=== PATIENT | male | born 1955 | race Caucasian/White ===

== ENCOUNTER 2018-11-16 11:54 | Inpatient (IN) | payer OTHER ==
[~2018-11-16] VITALS: Ht 170.2 cm; Wt 89.0 kg
--- NOTE | 2018-11-16 13:08 | NUR ---
PT C/O OF FALLING AT HOME AND HITTING HIS HEAD ON THE CARPET. PT WAS SUPPOSE TO GO TO [facility] TODAY BUT WQSNT ABLE TO MAKE THE APPOINTMENT. PTS DAUGHTER CAME TO SEE HIM AND SHE STS THAT HE WASNT ACTING NORMAL. SHE STS THAT WAS ACTING "SLOW". PT STS THAT HE HAS VOMITED ONE TIME TODAY. PT STS THAT SINCE HE HAS FALLEN HIS LEGS FEEL HEAVY AND THE RIGHT LEG HURTS MORE THAN HIS LEFT. SINCE HIS FALL HE ALSO HAS FELT DIZZY AND "NOT HIMSELF". CALL LIGHT IN REACH. DAUGHTER AT BEDSIDE. VSS. WILL CONTINUE TO MONITOR.
--- NOTE | 2018-11-16 13:51 | NUR ---
XRAY AT BEDSIDE.
[2018-11-16 13:53] LABS: BASOPHIL % 0.2 % (0-2)
[2018-11-16 14:01] LABS: CALCIUM 9.1 mg/dL (8.5-10.1); CARBON DIOXIDE 26.5 mmol/L (21-32); CHLORIDE SERUM 97 mmol/L (98-107); CREATININE SERUM 0.8 mg/dL (0.7-1.3); GFR1 > 60 mL/min; GLUCOSE SERUM 123 mg/dL (74-106); POTASSIUM SERUM 3.8 mmol/L (3.5-5.1); SODIUM SERUM 136 mmol/L (136-145)
[2018-11-16 14:02] LABS: PLATELET COUNT 117 x10^3mcL (130-400); RED CELL DISTRIBUTION WIDTH 17.2 % (11.5-14.5)
[2018-11-16 14:11] LABS: ALBUMIN 3.4 g/dL (3.4-5.0); ALKALINE PHOSPHATASE 112 U/L (46-116); ALT/SGPT 44 U/L (16-63); AST/SGOT 61 U/L (15-37); BILIRUBIN TOTAL 5.24 mg/dL (0.20-1.00); C REACTIVE PROTEIN 4.9 mg/dL (<=0.9); TOTAL PROTEIN, SERUM 6.6 g/dL (6.4-8.2)
[2018-11-16 14:15] LABS: FREE T4 1.48 ng/dL (0.76-1.46); FREE THYROXINE INDEX 2.4 ug/dL (1.4-4.5)
--- NOTE | 2018-11-16 14:15 | NUR ---
DAUGHTER AT BEDSIDE. PT HAS NO S/S OF DISTRESS. REPS E/U. WILL CONTINUE TO MONITOR.
--- NOTE | 2018-11-16 14:16 | NUR ---
GAVE REPORT TO ARMANDO GAMING.
[2018-11-16 14:27] LABS: T3 TOTAL 0.59 ng/mL
[2018-11-16 14:35] LABS: CK-MB 2.7 ng/mL (0-3.6)
[2018-11-16 14:55] LABS: ERYTHROCYTE SED RATE 0 mm/hr (0-20)
--- NOTE | 2018-11-16 15:47 | NUR ---
PT MEDICATED PER ORDER. PT VERBALIZED UNDERSTANDING OF MED. SEE EMAR FOR DETAILS.
--- NOTE | 2018-11-16 15:51 | NUR ---
PT STS HE IS IN PAIN. DR. VALENTINO AT BEDSIDE AWARE OF PT PAIN AT THIS TIME.
[2018-11-16] MEDS ORDERED: NEURONTIN800 MG PO (16:24)
[2018-11-16] MEDS ORDERED: APAP/HYDROCODON1 T13 PO (16:25)
[2018-11-16] MEDS ORDERED: TRA50 PO (16:27)
[2018-11-16] MEDS ORDERED: NORTRIPTYLINE H10 MG PO (16:28)
[2018-11-16] MEDS ORDERED: FUROSEMIDE20 MG PO (16:29)
[2018-11-16] MEDS ORDERED: ZOFRAN ODT4 MG PO (16:29)
--- NOTE | 2018-11-16 16:50 | NUR ---
REPORT GIVEN TO MYESHA GAMING.
[2018-11-16 17:01] LABS: CHOLESTEROL/HDL RATIO 13.8; MAGNESIUM 1.9 mg/dL (1.8-2.4); PHOSPHOROUS 3.8 mg/dL (2.5-4.9)
[2018-11-16 17:20] VITALS: BP 120/89
--- NOTE | 2018-11-16 17:24 | NUR ---
MEDICATED W/ MORPHINE 2MG SLOW IVP FOR C/O 9/10 HEADACHE AND ABDOMINAL PAIN AND W/ ZOFRAN 4 MG SLOW IVP FOR C/O NAUSEA. PT AAOX3, W/ PERIODS OF FORGETFULNESS. ABLE TO FOLLOW SIMPLE COMMANDS. NO SOB NOTED. ON TELE#19, SINUS TACHYCARDIA ON THE MONITOR, HR AT 104. W/ SWELLING ON BLE. PULSES ARE PALPABLE. IV SITE ON THE LAC IS PATENT AND INTACT. SIDE RAILS UPX2. CALL LIGHT ON REACH. HOB ELEVATED AT [address] ARIZMENDI IS PAGEGATED TO MADE AWARE THAT PT NEEDS A DIET ORDER. DAUGHTER AT BEDSIDE. WILL CONT TO MONITOR
--- NOTE | 2018-11-16 17:32 | NUR ---
RECEIVED PT FROM ED VIA MARYURI. ORIENTED PT TO ROOM AND SURROUNDINGS. IV NOTED TO LAC PATENT AND INTACT. TELE 19 PLACED ON PT READING SR WITH BBB. INSTRUCTED PT ON THE USE OF CALL LIGHT FOR ASSISTANCE. ENDORSED PT TO PRIMARY NURSE MYESHA
--- NOTE | 2018-11-16 18:01 | NUR ---
RANDOM BLOOD SUGAR HHAV=[id number].
--- NOTE | 2018-11-16 19:03 | NUR ---
BEDSIDE REPORT GIVEN TO ANNETTE FOR CONTINUITY OF CARE
--- NOTE | 2018-11-16 19:39 | NUR ---
RECEIVED PT A/O X 3. ON TELE #9. DENIES ANY CHEST PAIN AT THIS TIME. EDEMA NOTED ON BLE. BREATHING IS EVEN AND UNLABORED. BOWEL SOUNDS ACTIVE IN ALL QUADRANTS. PT STATES THAT HE HAS NO N/V AT THIS TIME. IV ON LAC IS PATENT AND RUNNING NS AT 100 CC/HR. WILL CONTINUE TO MONITOR.
[2018-11-16 19:50] VITALS: BP 120/86
[2018-11-16 20:51] VITALS: BP 122/95
--- NOTE | 2018-11-16 21:00 | NUR ---
ADMINISTERED SCHEDULED MEDICATIONS. PT TOLERATED MEDS WELL. WILL CONTINUE TO MONITOR.
[2018-11-16 21:55] VITALS: BP 118/91
--- NOTE | 2018-11-16 21:55 | NUR ---
TICKET SCHEDULER CALLED AND REPORTED EPISODE OF 2ND DEGREE BLOCK TYPE 2 NON-SUSTAINED.CHECKED ON PT.DENIES CHESTPAIN.IN NO DISTRESS.BP 118/91 MMHG,HR 104.92%RA.DR. RAQUEL FLETCHER.
--- NOTE | 2018-11-16 22:30 | NUR ---
SPOKE WITH DR. GARCÍA AND MADE AWARE.NNO AT THIS TIME.MONITOR READS SINUS TACH AT THIS TIME.WILL CONTINUE TO MONITOR.
[2018-11-17 05:15] VITALS: BP 114/85
[2018-11-17 06:01] LABS: UA SPECIFIC GRAVITY 1.015 (1.005-1.035); microscopic required? YES; urine erythrocyte NEGATIVE (NEGATIVE)
--- NOTE | 2018-11-17 06:03 | NUR ---
PT COMPLAINED OF DIZZINESS AND 10/10 PAIN. ADMINISTERED PRN ANTIVERT AND MORPHINE PRESCRIBED.
[2018-11-17 06:11] LABS: AMPHETAMINE QUAL UR NONE DETECTED (See below)
[2018-11-17 06:26] LABS: CALCIUM 8.2 mg/dL (8.5-10.1); CARBON DIOXIDE 25.6 mmol/L (21-32); CHLORIDE SERUM 98 mmol/L (98-107); GFR1 > 60 mL/min; GLUCOSE SERUM 120 mg/dL (74-106); SODIUM SERUM 134 mmol/L (136-145)
[2018-11-17 06:40] LABS: BASOPHIL % 0.4 % (0-2)
--- NOTE | 2018-11-17 06:43 | NUR ---
PT IS SEEN SLEEPING IN BED. BREATHING IS EVEN AND UNLABORED. IV IS PATENT, AND RUNNING NS AT 100 CC/HR. WILL ENDORSE CONTINUITY OF CARE TO ONCOMING NURSE.
--- NOTE | 2018-11-17 07:12 | NUR ---
RECEIVED PATIENT FROM INVESTIGATION SPECIALIST NURSE. PATIENT IS RESTING WITH BOTH EYES CLOSED, AROUSABLE. TELE#19, ST WITH BBB, HR 117. 2+ EDEMA NOTED TO BLE, ELEVATED ON PILLOWS AT THIS TIME. ON ROOM AIR, BREATHING EVEN AND UNLABORED. IV NTOED TO LAC, SALINE LOCKED, NO S/S REDNESS OR EDEMA AT SITE, FLUSHING WELL. CALL LIGHT WITHIN EASY REACH. WILL CONTINUE PLAN OF CARE.
[2018-11-17 07:23] LABS: PLATELET COUNT 114 x10^3mcL (130-400); RED CELL DISTRIBUTION WIDTH 17.4 % (11.5-14.5)
[2018-11-17 07:43] VITALS: BP 107/82
--- NOTE | 2018-11-17 09:22 | NUR ---
ECHOCARDIOGRAM COMPLETED
--- NOTE | 2018-11-17 12:22 | NUR ---
LAB CALLED WITH CRITICAL LACTIC ACID 2.8. DR POWELL NOTIFIED AT THIS TIME. REPEAT LA TO BE ORDERED IN 6 HOURS. WILL FOLLOW UP.
[2018-11-17 12:29] LABS: TOTAL IRON BINDING CAPACITY 296 ug/dL (250-450)
[2018-11-17 12:31] VITALS: BP 103/76
[2018-11-17 12:37] LABS: IRON 24 ug/dL (65-170)
[2018-11-17 16:52] VITALS: BP 122/88
--- NOTE | 2018-11-17 16:55 | NUR ---
MANAGER EMPLOYMENT NOTIFIED OF PATIENTS TEMP 96.8. PATIENT ASSESSED AND FEELS COOL TO THE TOUCH. PATIENTS TEMP TAKEN AGAIN AND READING 96.9. PATIENT GIVEN WARM BLANKETS AND HEATING MEASURES IMPLEMENTED AT THIS TIME. DR ANDRE FLETCHER. WILL FOLLOW UP.
--- NOTE | 2018-11-17 17:20 | NUR ---
PATIENTS BLADDER SCANNED AT THIS TIME. MINIMAL AMOUNT OF URINE THAT IS NOT QUANTIFIED. SPOKE WITH DR POWELL AND NOTIFIED OF PATIENTS TEMP 96.8 AND OF PATIENTS BLADDER SCAN RESULTS DUE TO MINIMAL URINE OUTPUT. ORDER TO PLACE STERLING CATHETER. WILL CONTINUE TO MONITOR.
--- NOTE | 2018-11-17 17:54 | NUR ---
STERLING CATHETER INSERTED AT THIS TIME. PATIENT TOLERATED WELL. URINE OUTPUT 300CC DARK JAXON URINE. WILL CONTINUE TO MONITOR.
[2018-11-17 19:10] VITALS: BP 123/88
--- NOTE | 2018-11-17 19:12 | NUR ---
PATIENT RESTING IN BED PEACEFULLY AT THIS TIME. MEDICATED FOR GENERALIZED PAIN WITH NORCO. NO C/O CHEST PAIN OR SOB. WILL ENDORSE PATIENT CARE TO FEATHER MIXER NURSE.
--- NOTE | 2018-11-17 19:15 | NUR ---
RECEIVED PT DROWSY BUT EASILY AROUSABLE,ANSWERS QUESTIONS APPROPRIATELY.ME 7/10 TO GENERALIZED PAIN.C/O DIZZINESS.BP 123/88 MMHG,HR 101.F/C TO JAXON COLORED URINE.ON FALL PRECAUTION.BEDALARM ON AT ALL TIMES.WILL CONTINUE TO MONITOR.
[2018-11-17 20:41] VITALS: BP 115/87
--- NOTE | 2018-11-18 04:35 | NUR ---
PT SLEPT WELL ALL NIGHT.NO SYNCOPAL EPISODES NOTED.EPISODE OF BOWEL INCONTINENCE TO WATERY STOOL X1.GOOD PERICARE RENDERED.F/C TO JAXON COLORED URINE.EMPTIED 2500 ML.DENIES ABDOMINAL PAIN AT THIS TIME.BEDALARM ON AT ALL TIMES.WILL CONTINUE TO MONITOR.
[2018-11-18 05:23] VITALS: BP 123/75
[2018-11-18 06:37] LABS: BASOPHIL % 0.2 % (0-2)
--- NOTE | 2018-11-18 07:00 | NUR ---
PATIENT AND REPORT RECEIVED FROM SENIOR JAVA WEB DEVELOPERBRI BRYANT RN
[2018-11-18 07:27] LABS: CALCIUM 8.1 mg/dL (8.5-10.1); CARBON DIOXIDE 25.2 mmol/L (21-32); CHLORIDE SERUM 96 mmol/L (98-107); CREATININE SERUM 1.1 mg/dL (0.7-1.3); GFR1 > 60 mL/min; GLUCOSE SERUM 116 mg/dL (74-106); POTASSIUM SERUM 3.8 mmol/L (3.5-5.1); SODIUM SERUM 133 mmol/L (136-145)
[2018-11-18 07:47] LABS: PLATELET COUNT 99 x10^3mcL (130-400); RED CELL DISTRIBUTION WIDTH 17.6 % (11.5-14.5)
--- NOTE | 2018-11-18 08:16 | NUR ---
DR ANDRE FLETCHER FOR CRITICAL LABS HGB 19.2, HTC 58 AND LACTIC ACID 2.5.
[2018-11-18 08:17] VITALS: BP 113/71
--- NOTE | 2018-11-18 09:39 | NUR ---
ATTEMPTED INCENTIVE SPIROMETER INSTRUCTION AND USE WITH PATIENT. PATIENT VERY LETHARGIC, COULD BARELY KEEP EYES OPEN LONG ENOUGH TO LISTEN TO ME OR PERFORM IS. PT WAS INSTRUCTED ON HOW TO USE THE IS AND TO USE A MINIMUM OF 10X PER HOUR WHILE AWAKE BUT PATIENT KEPT FALLING ASLEEP DURING INSTRUCTION, WELL DURING USE. WILL ATTEMPT EDUCATION AGAIN LATER TODAY WHEN PATIENT IS MORE AWAKE AND ALERT.
[2018-11-18 11:49] VITALS: BP 103/76
--- NOTE | 2018-11-18 12:00 | NUR ---
PATIENT HAS BEEN SLEEPING THE MAJORITY OF THE DAY. DR REINA HERE TO SEE PATIENT, ADJUSTED LASIX ORDER AND AIDED SYED. ACCUCHECK WAS 102.
--- NOTE | 2018-11-18 16:00 | NUR ---
DR MEJIA ORDERED TO DISCONTINUE ABX AND IVF. WILL CONTINUE TO MONITOR AND ENDORSE TO NEXT SHIFT.
[2018-11-18 16:24] VITALS: BP 142/65
--- NOTE | 2018-11-18 16:30 | NUR ---
ACCUCHECK 118, NO COVERAGE REQUIRED.
--- NOTE | 2018-11-18 19:04 | NUR ---
PATIENT AND REPORT GIVEN TO MACHINE INSPECTOR ANNETTE GAMING.
--- NOTE | 2018-11-18 19:05 | NUR ---
RECEIVED PT SITTING BY THE EDGE OF THE BED.C/O DIZZINESS.ASSISTED BACK TO BED.DENIES CHESTPAIN AT THIS TIME.BP 116/76 MMHG,HR 102.GENERALIZED SWELLING NOTED.F/C TO DARK JAXON COLORED URINE.ON FALL PRECAUTION.BEDALARM ON AT ALL TIMES.WILL CONTINUE TO MONITOR.
[2018-11-18 19:10] VITALS: BP 116/76
--- NOTE | 2018-11-19 02:00 | NUR ---
PT WITH BOWEL INCONTINENCE X1 WITH DARK RED COLORED STOOL.ABDOMEN SOFT AND ROUND.PT APPEARS WEAK AND WITH SOME CONFUSION.REORIENTATION PROVIDED.GOOD PERICARE PROVIDED.WILL CONTINUE TO MONITOR.
--- NOTE | 2018-11-19 04:49 | NUR ---
PT WITH ON AND OFF SLEEPING PATTERN.EPISODES OF WATERY STOOL X3.GOOD PERICARE RENDERED.MEDICATED WITH NORCO 5/325 MG PO X1 FOR ABDOMINAL PAIN WITH GOOD RELIEF.BEDALARM ON AT ALL TIMES.ALL NEEDS ANTICIPATED.WILL CONTINUE TO MONITOR.
[2018-11-19 05:33] VITALS: BP 129/81
--- NOTE | 2018-11-19 06:31 | NUR ---
GOOD PERICARE RENDERED.CHANGED GOWN AND LINENS.EMPTIED ANOTHER 250 ML NOW TO YELLOW COLORED URINE.WILL ENDORSE TO AM NURSE.
[2018-11-19 06:56] LABS: CALCIUM 8.5 mg/dL (8.5-10.1); CREATININE SERUM 1.8 mg/dL (0.7-1.3)
[2018-11-19 07:29] LABS: BASOPHIL % 0.1 % (0-2); PLATELET COUNT 101 x10^3mcL (130-400); RED CELL DISTRIBUTION WIDTH 17.1 % (11.5-14.5)
--- NOTE | 2018-11-19 08:00 | NUR ---
PATIENT RECEIVED CONFUSED AND DISORIENTED AT THIS TME. APTEINT IS MUMBLING AND IS ALMOST UNABLE TO SPEAK. HE SEEMS SLEEPY AND HAVING TROUBLE KEEPING AWAKE. HE HAS NOT BEEN ABLE TO WALK OR DO HIS ADLS ON HIS OWN. PER REPORT PATIENT HAS BEEN IMPULSIVE AND NEEDS TO BE ASSISTED TO [facility] AND BACK DUE TO THE FALL RISL. APTIENT ON IV FLUIDS AND IS VERY EDEMITIS AND HAS AT LEAST 4 PLUS TO THE EXTREMTIES. IV TO THE THUMB WAS PER THE DRAW FRAME TENDER A DIFFICULT STICK TO ACHEIVE. PATIENT AHS DIMINSIHED BREATH SOUDNS WITH SOEM FINE RALES AND ABDOMEN IS DISTEDND EAND BLOATED IN APPEARANCE. PATIENT HAS NOTED HISTORY OF LEIVER CIRRHOSIS, CAD, HTN, CHF AND QUDRUPLE BYPASS WELL DM AND HAS HAD A ICD IN 2015. FABIOLA GILLIAMLASHAY LOW LUNG VOLUME PER THE CHEST XRAY AND HAS RECEIVED VITAMIN K AND HAS ELEVATED LACTIC ACIDE AND HAS A H AND H OF 18.7/56. THE WBC AT 15.0. APTINET HAS BEEN WITH EJECTION FRACTION OF ONLY 10 PERCENTR AND HAS BEEN WITH SINUS TACH WITH BBB. FABIOLA JEFFRIES PRTIEN IN THE URINE AND BACTERIA AND HAS BEEN POSITIVE FOR OPIATES. PATIENT AHS WEEN BY DR MONTAGUE, ROBERTO AND DR REINA. THE PROGNOSIS IS POOR FOR THE PATIENT AND FAMILY WILL NEEDS TO DISCUSSED IWTH THE PHYSICIAN ON PLAN OF CARE. PATIENT IS A DNR.
[2018-11-19 09:04] VITALS: BP 101/74
--- NOTE | 2018-11-19 09:42 | NUR ---
PATIENT HAVING BLOOD DRAWN BUT AT THIS TIME SEEMS CONFUSED AND DISORIENTED. TOLERATED WELL AND WILL SEE IF HE CAN TOLERATE THE MEDICATIONS ORDERED. NOTED DISCONTINUATION OF THE LASIX AND A ORDER FOR PAMELOR. WILL GIVE INDICATED.
--- NOTE | 2018-11-19 09:59 | NUR ---
RESIDENTS AT BEDSIDE. FLUIDS DISCONTINUED. GAV [place] BUT ROBERT IS UNABLE TO POUR INTO HIS MOUTH AND ASSISTED AND ASSISTED WITH DRINKING THE WATER WELL HE WAS UNABLE TO HOLD THE CUP. PATIENT IS CONFUSED AND DISORIENTED AT THIS TIME.
[2018-11-19 10:08] LABS: ALKALINE PHOSPHATASE 88 U/L (46-116); ALT/SGPT 643 U/L (16-63); BILIRUBIN DIRECT 4.02 mg/dL (0.0-0.2); BILIRUBIN TOTAL 7.23 mg/dL (0.20-1.00)
[2018-11-19 10:09] LABS: ALBUMIN 2.6 g/dL (3.4-5.0); TOTAL PROTEIN, SERUM 5.5 g/dL (6.4-8.2)
[2018-11-19 10:10] LABS: AST/SGOT 1547 U/L (15-37)
--- NOTE | 2018-11-19 11:08 | NUR ---
PATIENT FOUND ON THE FLOOR. PATIENT HAD APPARENTLY GOT UP AND WAS NOT ABLE TO WALK. THE PATIENT HAS AN ABRASION TO THE MIDDLE OF THE BACK AND HAS BLOODY STOOL NOTED DOWN HIS LEGS AND ON THE FLOOR. PATIENT IS WEAK BUT WAS ABLE TO ASSESS NO SIGNS OF FRACTURE. NO HEAD TRAUMA WAS NOTED. PATIENT DENIES PAIN TO THE BUTTOCKS OR THE LEGS AND STATES SOME PAIN TO THE RIGHT SIDE OF THE NECK. NO BUMPS NOTED OR ABRASIONS TO THE FACE, BACK OF HEAD OR EAR. PATIENT HAS NO STALIN OF INJURY TOT EH RIGHT OR LEFT ARM. PATIENT WAS SAT UP AND THE PT CAME AND ASSISTED THE STAFF TO GET THE PATEINT TO A CHAIR. THE THE PT GOT THE PATIET TO BED. PATIENT WAS NOT ABLE TO ASSIST THE PT OR STAFF ON HIS CARE. STAFF THEN CLENED HIS LEGS AND PERIRECTAL SITE. THE IV HAS BEEN LOST AND PULLED OUTBY THE PATINET AND THE STERLING REMAINS INTACT AND PATIENT HAS SOME BLOOD IN THE TUBING BUT MINIMAL AT THIS TIME. PATIENT IS RESTING IN BED AND THE RESIDENT CAME TO SEE THE PATIENT. THE PATIENT INDICATED PAIN TO THE NECK TO THE RSIDENT AND A CT WAS ORDERED. PATIENT IS DOWN FOR CT AND AWAITING ARRIVAL BACK AND RESULTS. PATIENT WAS ABLE TO TAKE HIS MEDICATIONS ORDERED. WILL RESTART THE IV ON HIS RETURN.
--- NOTE | 2018-11-19 11:31 | NUR ---
BACK FROM CT AND TOLERATED WELL VIA BED. BED ALARM ON AND WILL MONITOR FOR THE RESULTS OF THE TESTING.
--- NOTE | 2018-11-19 12:28 | NUR ---
UNABLE TO SEE PATIENT FOR P.T. DUE TO FALL IN THE MORNING, PATIENT WILL GO FOR TESTS PER NURSING.
--- NOTE | 2018-11-19 12:29 | NUR ---
DOWN FOR XRAY AT THIS TIME.
[2018-11-19 12:55] VITALS: BP 94/63
--- NOTE | 2018-11-19 15:16 | NUR ---
STARTED IV TO THE LEFT SHOULDER WITH 22 GAUGE AND HOPEFULLY THE PATIENT WILL NOT PULL OUT. GAVE SOME OF THELIQUID DIET BUT PATIENT IS UNABLE TO HOLD THE BOTTLE OF ENSURE OR EVEN GET TO THE STRAW WITHOUT GUIDANCE. HE IS SHAKEY AND ABRUPT ON HIS MOVEMENTS. ENCOURAGE TO RELAX AND NOT TO GET UP HE HAS ALREADY FALLEN DUE TO HIS WEAKNESS. PATIENT WANTS TO SLEEP NOW. WILL CONTINUE TO MONITOR.
[2018-11-19 16:30] VITALS: BP 98/66
--- NOTE | 2018-11-19 17:20 | NUR ---
SPOKE TIH MICAELA DAUGHTER ON THE PHONE AND SHE ATTEMPTING TO COME IN TOMORROW. ADVISED THAT THE PATIENT FAMILY NEED TO DISCUSS PLAN OF CARE WITH THE RESIDENT AND THE TANK BUILDER SUPERVISOR. PATIENT IS STILL CONFUSED AND LETHARGIC. PATIENT HAS HAD THE MEDICATIONS FOR THIS AFTERNOON HELD DUE TO THIS AND THE CONCERN THE PATIENT MAY ASPIRATE.
--- NOTE | 2018-11-19 18:44 | NUR ---
PATIENT HAS BLOOD FRON THE RECTUM IT IS A SORT OF ORANGISH RED AND NO INDICATIO OF ANY BM. MUCH LIKE EARLIER BUT WITHOUT STOOL. PATIENT IS VERY EDEMITIS AND HAS NOT BEEN ABLE TO TAKE MEDICATIONS OTHER THAN THE IV ROCEPHIN THAT WAS GIVEN. THE IV INTACT TO THE LEFT SHOULDER AND IS HEPLOCKED AT THIS TIME. PATIETN IS CONFUSED AND WAS ADVISED THAT THE DAUGHTER IS ATTEMPTING TO COME TO THE HOSPTIAL SEE HIM TOMORROW. DUE TO THE FALL AND THE EJECTION FRACTION AND THE BLOOD LOSS AND THE POOR OUTPUT OF URINE AND HIS ELVATED LIVER ENZYMES THE PATIENT IS IS IN A STATE THAT THE FAMILY DISCUSS OPTIONS. THE PATIENT HAS MULTIPLE MORBIDITIES AND ISSUES. HE WAS NOT ABLE TO TOLERATE THE ULTRASOUND AT THIS TIME. THE TECH STOPPED WHEN PATIENT BECAME RESISTIVE TO THE TEST. BED ALARM ON AND PATIENT HAS BEEN TOO LETHARGIC TO TOLERATE THE MEDICATION OR DIET AT THIS TIME. IF UNABLE TO CONTACT THE RESIDENT WILL ENDORSE FINDINGS TO THE NEXT SHIFT TO ADVISE.
--- NOTE | 2018-11-19 19:35 | NUR ---
RECEIVED PT RESTING IN BED, PT APPEARS LETHARGIC, SLEEPY BUT AROUSABLE. PT AOX2 (PT CAN RECALL HIS NAME, , HE KNOWS HE IN IS HOSPITAL, DOESNT KNOW THE CITY, PT CAN RECALL CURRENT YEAR). PROVIDED REORIENTATION, WHEN DOING SO PT KEEPS UTTERING, "I KEEP MESSING THAT UP". PROVIDED REASSURANCE THAT HE WILL BE REMINDED. PT DENIES WEINER/DIZZINESS. TELE # 14, ST W/ BBB. DENIES CP. 4+ PITTING EDEMA BLE (RT LEG APPEARS MORE SWOLLEN & REDDENED THAN LEFT LEG). BUE 3+ PITTING EDEMA. PT HAS ECCHYMOSIS TO RFA/ELBOW AREA. DENIES PAIN. PT S/P FALL DURING DAYSHIFT (ABRASION TO MID/LOWER BACK) JACEK. NONDRAINING. RESP EVEN AND UNLABORED ON RA, DENIES SOB. DIM BILAT BASES. PER DAYSHIFT, PT HAS BEEN HAVING BLOOD IN STOOL, ALTHOUGH UPON ASSESSMENT NO STAINING ON ABSORBANT PAD NOTED OR PT DENIES ABD PAIN AT THIS TIME. PT HAS STERLING CATH DRAINING JAXON URINE TO GRAVITY. GENERALIZED WEAKNESS, BED ALARM ON D/T PT GOT OUT OF BED AND FELL DURING DAYSHIFT. WHEN ASKED WHENS THE LAST TIME PT AMBULATED, PT REPORTS "ITS BEEN A LONG TIME". IV SITE TO LEFT UPPER SHOULDER, SALINE LOCKED AT THIS TIME, NO REDNESS, SWELLING OR PAIN NOTED. ALL COMFORT AND SAFETY MEASURES PROVIDED FOR, CALL LIGHT WITHIN REACH, BED IN LOWEST POSITION,WILL CONTINUE TO MONITOR.
[2018-11-19 21:08] VITALS: BP 105/51
--- NOTE | 2018-11-20 05:00 | NUR ---
PT RESTED IN INTERVALS DURING SHIFT, NO ACUTE CHANGES OCCURRING OVERNIGHT. PT MORE AWAKE AND ALERT. PT ABLE TO MAKE NEEDS KNOWN, STILL NONE COOPERATIVE WITH USING CALL LIGHT, PERFERS TO YELL FOR HELP. PROVIDED REINFORMCEMENT OF USE CALL OF CALL LIGHT. PT STILL AOX2 (PT KNOWS HIS NAME, , CURRENT YEAR, HE KNOWS HES IN A HOSPITAL, HE STS CURRENT PRES IS [facility]) PROVIDED REORIENTATION IN REGARDS TO CURRENT DATE AND CITY, WELL CURRENT PRESIDENT. PT DENIES PAIN AT THIS TIME, PT HAD NO BM DURING SHIFT. PT ATTEMPTED TO GET OUT OF BED ONCE YET WAS UNABLE TO GET TRUNK OF BODY OUT, ONLY LEGS DANGLED OVER SIDE. RETURNED PT BACK TO SAFE POSITION AND PROVIDED FOR NEEDS. ENCOURAGED USE OF CALL LIGHT. IV SITE REMAINS PATENT, NO REDNESS, SWELLING OR PAIN NOTED. BLOOD SUGAR LAST NIGHT= 200, HELD COVERAGE D/T PT NOT CONSUME ANYTHING. DR. MATHEWS AWARE. BLOOD SUGAR THIS AM= 196, PT ATE 4 JELLO'S DURING SHIFT AND COLLABORATED WITH DR. CHARLTON, WILL PROVIDE COVERAGE PER SIDING SCALE, ALL COMFORT AND SAFETY MEASURES PROVIDED FOR, CALL LIGHT WITHIN REACH, BED IN LOWEST POSITION, WILL CONTINUE TO MONITOR.
[2018-11-20 05:25] VITALS: BP 107/74
[2018-11-20 06:25] LABS: RED CELL DISTRIBUTION WIDTH 17.4 % (11.5-14.5)
[2018-11-20 06:26] LABS: BASOPHIL % 0 % (0-2); PLATELET COUNT 87 x10^3mcL (130-400)
[2018-11-20 06:42] LABS: CALCIUM 7.6 mg/dL (8.5-10.1); CARBON DIOXIDE 24.8 mmol/L (21-32)
--- NOTE | 2018-11-20 06:44 | NUR ---
PROVIDED PT WITH BP MEDICATION METOPROLOL 25MG FOR HR 92, BP 107/74 (85). PT MORE ALERT THAN LAST EVENING, ALSO PROVIDED REG INSULIN 3 UNITS FOR BLOOD SUGAR= 196. PT ATE 5 JELLO'S THROUGHOUT SHIFT. PT APPEARS TO HAVE GAINED SOME APPETITE BACK AND IS LOOKING FORWARD TO BREAKFAST. WILL ENDORSED TO DAYSHIFT NURSE.
--- NOTE | 2018-11-20 07:20 | NUR ---
RECEIVED PT. IN BED SLEEPY. PT. CAN BE AROUSED EASILY. PT. APPEARS CONFUSED. MILD SOB NOTED WITH EXERTION. NO N/V NOTED. PT. DENIES ANY PAIN AT THIS TIME. IV SITE NOTED TO L SHOULDER. F/C DRAINING JAXON URINE. BED IN LOW POS., CALL LIGHT WITHIN REACH. SIDE RAILS UP X3.
--- NOTE | 2018-11-20 08:45 | NUR ---
DR ARIZMENDI NOTIFIED OF BP-79/61. PATIENT IS DIZZY AND VERY LETHARGIC, LYING IN BED, UNABLE TO SIT IN BED AT THIS TIME. RECHECK BP-93/52, AND DR ARIZMENDI MADE AWARE. NO NEW ORDERS RECEIVED.
[2018-11-20 08:55] VITALS: BP 80/63
--- NOTE | 2018-11-20 09:47 | NUR ---
DR. ARIZMENDI WAS MADE AWARE THAT ALL AM ANTI-HYPERTENSIVE MEDS. INCLUDING IV LASIX WERE HELD DUE TO LOW BP. NO FURTHER ORDER RECEIVED AT THIS TIME.
--- NOTE | 2018-11-20 11:00 | NUR ---
DR. ARIZMENDI SAID PT. NEEDS TO BE TRANSFERRED TO ICU FOR CLOSER MONITORING DUE TO LOW BLOOD PRESSURE.
--- NOTE | 2018-11-20 11:46 | NUR ---
TRANSFER TO ICU PENDING DISCUSSION BETWEEN DR. GONZALEZ AND DR. ARIZMENDI, DR. GONZALEZ DISCUSSED CARE WITH PT WHO REFUSES VASOPRESSORS AT THIS TIME. CHARGE NURSE TO CLARIFY CODE STATUS WITH FAMILY.
--- NOTE | 2018-11-20 12:20 | NUR ---
CALLED REPORT TO MIN RN IN ICU. PATIENT TO BE TRANSFERRED TO BED 6
--- NOTE | 2018-11-20 12:30 | NUR ---
UPON ARRIVING TO TRANSFER PT TO ICU, PT UNRESPONSIVE- TELEMETRY LINES PLACED FOR TRANSFER, PT NOTED TO HAVE A HR 22-26 BPM. PT PALE AND ASHY, STOPPED BREATHING. O2 SAT NOTED TO BE 70-80%, PT EXTREMITIES COLD. RAPID RESPONSE CALLED. NON-REBREATHER MASK PLACED. PT RESPONSIVE TO NAME AFTER OXYGEN ADMINISTRATION. PT STABLE FOR TRANSFER.
--- NOTE | 2018-11-20 12:45 | NUR ---
PT TRANSFERRED BY BED TO ICU BED 6. ICU RESUMED CARE OF PATIENT.
--- NOTE | 2018-11-20 13:14 | NUR ---
PT WAS TRANSFER FROM ROOM 219 VIA BED ON PORTABLE CARDIC MONITOR, O2 VIA NON REBREATHER MASK. WITH SYD RN, YASMIN RN, ALIS RN WITH TRAVEL INTUBATION KIT. MAX ASSISTS TO TRANSFER PT FROM MST BED TO ICU BED 6. PT IS SLOW TO ANSWER AAOX3 ABLE TO FOLLOW VERBAL COMMANDS AND VERBALIZE NEEDS. PT IS CONFUSED, ATTEMPTS TO PULL TUBING OFF FACE, REORIENTED PT. PT DENIES WEINER. PT ON FULL CARDIC MONITOR. PT RECIEVING 2LO2 VIA NASAL CANNULA, 94%PO2SAT. CTA TO BL LUNG [place]. B/P 155/70 MAP 119, HR 95, AX TEMPT 96.7 IV TO L SHOULDER IS CDI, ABLE TO FLUSH. NNS AT 42ML/HR. BED AT LOW AND CALL LIG WITHIN REACH. ORIENTED PT TO ROOM AND CALL LIGHT.
--- NOTE | 2018-11-20 13:30 | NUR ---
B/P 82/50 MAP 61, IMPLEMENTED LEVOPHED AT 2MCG/KG/MIN TO ACHIEVE MAP 65. PT ON FUL CAIRDIC MONITOR FOR MONITORING.
--- NOTE | 2018-11-20 13:48 | NUR ---
DR. DAY AT BEDSIDE ASSESSING PT.PER DR. DAY TO HOLD LEVOPHED AND START DOPAMIN AT 5MCG/KG/MIN, LASIX RN LACTATION AT 15MG/HR AND 25% ALBUMIN 100ML Q8HRS. AWAITING FOR ORDERS TO BE PUT IN.
--- NOTE | 2018-11-20 14:32 | NUR ---
PHYSICAL THERAPY DAILY NOTES CO-SIGN All documentation done by the Deck Scaler for 11/20/18 has been reviewed. I agree with the documentation. Reviewed/Co-Signed by: Natacha Mcdonald PT Documentation Done by:DARELL FIERRO
--- NOTE | 2018-11-20 14:39 | NUR ---
DOPAMINE AT 5MCG/KG/MIN BASED ON 113.2KG. HR 103, BP 108/57 MAP 75.
--- NOTE | 2018-11-20 15:00 | NUR ---
PT RECIEVING 2LO2 SATING AT 91%, INCREASED O2 TO 3L TO ACHIEVE 94%PO2SAT.
--- NOTE | 2018-11-20 15:15 | NUR ---
DR MONTAGUE, DIAZ RN AND MYSELF AT BEDSIDE TO SPEAK WITH PATIENT. PATIENT ALERT AND ORIENTED X 4. ALERT TO PERSON, PLACE, SITUATION AND TIME. DR MONTAGUE EXPLAINED TO PATIENT HE IS IN NEED OF CENTRAL LINE PLACE. RISKS AND BENEFITS DISCUSSED. CONSENT OBTAINED AND WITNESSED BY MYSELF AND MEKHI PERALES.
--- NOTE | 2018-11-20 15:22 | NUR ---
PT IS AAOX4 ABLE TO FOLLOW VERBAL COMMANDS AND VERBQLIZE NEEDS. DR. MONTAGUE AT BEDSIDE EXPLAINING INDICATION OF CENTRAL LINE FOR MEDICATION AND RISKS OF INFECTION. PT VERBALIZED UNDERSTANDING AND STATED, " JUST GET IT DONE ALREADY".
--- NOTE | 2018-11-20 15:35 | NUR ---
PROVIDED UPDATES TO DR. DR. LUPILLO NAVARRETE. GAVE TELEPHONE ORDER TO TO D/C SHANNON, ORDER VANCOMYACIN 1GM IV ONCE THAN HAVE PHARMACY TO DOSE, MERREM 500MG IV Q8HRS. WILL ENTER ORDER.
--- NOTE | 2018-11-20 15:39 | NUR ---
[employer] FFT AND DR. POWELL AND DR. GAYTAN AT BEDSIDE FOR CENTRAL LINE INSERTION.
--- NOTE | 2018-11-20 15:45 | NUR ---
TIME OUT AT BEDSIDE, PT'S NAME, MEDICAL NUMBER, PROCEDURE, BIRTHDAY CONFIRMED WITH CHARISSE CAD LIBRARIAN AND MD.
--- NOTE | 2018-11-20 17:00 | NUR ---
CXR AT BEDSIDE TO CONFIRM CENTRAL LINE INSERTION.
--- NOTE | 2018-11-20 17:04 | NUR ---
PT IS LETHARGIC STATUS POST CENTRAL LINE INSERTION.
--- NOTE | 2018-11-20 18:30 | NUR ---
AARTI EX PORIVDED CPNTACT INFORMATION [phone]
--- NOTE | 2018-11-20 19:03 | NUR ---
RECEIVED REPORT FROM MEKHI PERALES. ALL QUESTIONS AND CONCERNS ADDRESSED.
[2018-11-20 19:15] VITALS: BP 126/86
--- NOTE | 2018-11-20 21:51 | NUR ---
RT AT BESIDE FOR BREATHING TX
--- NOTE | 2018-11-20 22:46 | NUR ---
DR LO AT BEDSIDE, UPDATES GIVEN.
[2018-11-20 23:11] VITALS: BP 138/80
--- NOTE | 2018-11-20 23:37 | NUR ---
FC EMPTIED, 4000MLS OUT
--- NOTE | 2018-11-20 23:38 | NUR ---
DOPAMINE TITRATED DOWN FROM 5MCG/KG/MIN TO 3MCG/KG/MIN.
[2018-11-21] VITALS (7 sets, daily range): BP systolic 85–118; BP diastolic 60–87
--- NOTE | 2018-11-21 01:30 | NUR ---
PT RESTING AT THIS TIME IN ICU 6 IN HOSPTIAL BED IN LOW FOWLERS. NO SIGNS OF ACUTE DISTRESS. VS STABLE
--- NOTE | 2018-11-21 04:39 | NUR ---
LAB AT BEDSIDE FOR BLOOD DRAW
[2018-11-21 05:14] LABS: BASOPHIL % 0.1 % (0-2)
[2018-11-21 05:28] LABS: PLATELET COUNT 66 x10^3mcL (130-400); RED CELL DISTRIBUTION WIDTH 17.1 % (11.5-14.5)
[2018-11-21 05:32] LABS: ALBUMIN 3.5 g/dL (3.4-5.0); BILIRUBIN TOTAL 9.5 mg/dL (0.20-1.00); CALCIUM 8.1 mg/dL (8.5-10.1); CARBON DIOXIDE 30.8 mmol/L (21-32); CREATININE SERUM 1.6 mg/dL (0.7-1.3); MAGNESIUM 1.7 mg/dL (1.8-2.4); PHOSPHOROUS 3.1 mg/dL (2.5-4.9); TOTAL PROTEIN, SERUM 6.3 g/dL (6.4-8.2)
[2018-11-21 05:37] LABS: POTASSIUM SERUM 2.3 mmol/L (3.5-5.1)
--- NOTE | 2018-11-21 06:04 | NUR ---
RESIDENT AT BEDSIDE, UPDATES GIVEN.
--- NOTE | 2018-11-21 07:35 | NUR ---
RECEIVED PATIENT SLEEPING AROUSABLE, DISORIENTED. DENIES PAIN. BILAT SOFT WRIST RESTRAINT IN PLACE. AFIB HR 100 NOTED. RIJ X 3 LUMENS WITH LASIX AT 15MG/HR AND DOPAMINE AT 5MCG/KG/MIN AND NS 42ML/HR CONT. LT SHOULDER IV INTACT AND SL NOTED. STERLING TO GRAVITY DRAINING YELLOW URINE. CONT TO MONITOR.
--- NOTE | 2018-11-21 08:57 | NUR ---
PATIENT REMAIN SLEEPY, MUMBLING WHEN AROUSED. K-RIDER 40MEQ IV INFUSING ORDRED, K 2.3 AND PROTONIX GIVEN. BREAKFAST TRAY LEFT ON TABLE FOR PATIENT WHEN FULLY AWAKE. CONT TO MONITOR. RAMY (STEP-MOTHER) CALLED AND UPDATED. REPORTED DON'T KNOW INFO ON PACE-MAKER. CALL DTR SHEBA AND LEFT MESSAGE.
--- NOTE | 2018-11-21 10:16 | NUR ---
DR. GUERRA ROUND WITH DR. DE LA CRUZ PATIENT SLEEPY, BUT ABLE TO OPEN EYES AND KNOTTED HIS HEAD WHEN DR. GUERRA SPEAKING TO HIM. PER DR. DE LA CRUZ D/C HAYLIESYN. KEEP PATIENT ON VANCOMYCIN/IMIPENEM. RN INFORM DR. DE LA CRUZ PATIENT IS VERY DROWSY UNABLE TO TAKE PO MEDS AT THIS TIME. CONT TO MONITOR.
--- NOTE | 2018-11-21 10:17 | NUR ---
DR. GUERRA, DR. SMITH, PRIMARY RN AND COOLER SERVICE SUPERVISOR AT BEDSIDE FOR MORNING ROUNDS. PLAN OF CARE DISCUSSED. WILL CONT TO MONITOR.
--- NOTE | 2018-11-21 11:04 | NUR ---
PATIENT MORE AWAKE ABLE TO DRINK WATER/MILK, GAVE PO MEDS CRUSH WITH APPLESAUCE WITH ELEVATED HOB UPRIGHT, PATIENT TOLERATED WELL. INFORM DR. DE LA CRUZ TO CHANGE POTASSIUM PO TO LIQUID FORM UNABLE TO CRUSH PILLS. BILAT RESTRAINT IN PLACE. CALL LIGHT IN REACH.
--- NOTE | 2018-11-21 11:11 | NUR ---
DR. SCRUGGS HERE VISITING PATIENT, TRY TO OBATIN PACEMAKER INFO FOR PACEMAKER INTERROGATION. UPDATE POC. CONT TO MONITOR.
--- NOTE | 2018-11-21 11:34 | NUR ---
DR. DE LA CRUZ WITH PRIMARY RN MEETING WITH DTR SHEBA AND AARTI (EX-) DISCUSS POC AND RECOMMENDATION. DR. DE LA CRUZ DISCUSS OPTION, PATIENT PROGNOSIS, AND PALLIATIVE CARE. PER DR. DE LA CRUZ WILL HAVE CM TO DISCUSS MORE ON PALLIATIVE OPTION. QUSTIONS ADDRESSED.
--- NOTE | 2018-11-21 12:17 | NUR ---
REPOSITION PATIENT UP IN BED ELEVATED HOB UPRIGHT, GAVE PO MEDS PATIENT TOLERATED WELL, DTR ASSISTING WITH LUNCH. BS 130 NO COVERAGE NEEDED. NEEDS MET. CALL LIGHT IN REACH.
--- NOTE | 2018-11-21 13:00 | NUR ---
PATIENT SLEEPING HOB ELEVATED 35 DEGREE, FAMILY MEMBERS REMAIN AT BEDSIDE. DR. MEJIA SEEN PATIENT AT BEDSIDE. NEW ORDERS.
--- NOTE | 2018-11-21 13:24 | NUR ---
DR. REINA SEEN PATIENT AT THIS TIME, SPOKE WITH FAMILY MEMBERS AND UPDATE PATIENT'S CONDITION.
--- NOTE | 2018-11-21 14:10 | NUR ---
DR. MONTAGUE HERE ROUND ON PATIENT AND SPOKE WITH DTR SHEBA AT THIS TIME, DOCTOR ADDRESSED ALL CONCERN QUESTIONS FAMILY MEMBERS HAVE.
--- NOTE | 2018-11-21 14:45 | NUR ---
DR. MONTAGUE DISCUSS WITH DR. DE LA CRUZ WEAN OFF DOPAMINE AND TRANSFER TO [facility]. TITRATED DOPAMINE DOWN TO 3MCG/KG/MIN ORDERED. PATIENT SLEEPING AT THIS TIME. NO DISTRESS NOTED.
--- NOTE | 2018-11-21 14:45 | NUR ---
NIBP 115/84 MAP 93 HR 105, DOPAMINE TITRATED TO 3 MCG/KG/MIN. WILL CONT TO MONITOR.
--- NOTE | 2018-11-21 15:38 | NUR ---
PATIENT REMAIN SLEEPING NO DISTRESS NOTED, RAMY ALCALA MOM AT BEDSIDE VISITING PATIENT. CONT TO MONITOR.
--- NOTE | 2018-11-21 16:15 | NUR ---
NIBP 99/68 MAP 86 HR 99, DOPAMINE TITRATED TO 2.5 MCG/KG/MIN. WILL CONT TO MONITOR.
--- NOTE | 2018-11-21 17:21 | NUR ---
NIBP 101/78 MAP 86 HR 96, DOPAMINE TITRATED TO 1.5 MCG/KG/MIN. WILL CONT TO MONITOR.
--- NOTE | 2018-11-21 17:56 | NUR ---
DR. DAY ROUND ON PATIENT, PATIENT SLEEPING. UPDATED LAB AND OUTPUT. PER DR. DAY DECREASE LASIX 7.5MG/HR ORDERED. CURRENT RATE 7.5MG/HR CONT.
--- NOTE | 2018-11-21 18:22 | NUR ---
PATIENT REMAIN SLEEPING, NO ACUTE DISTRESS NOTED. REPLACE NEW BAG OF DOPAMINE RATE 1.498MCG/KG/MIN CONT. CALL LIGHT IN REACH. REPOSITION.
--- NOTE | 2018-11-21 18:37 | NUR ---
NIBP 93/70 MAP 75 HR 92, DOPAMINE TITRATED TO 1 MCG/KG/MIN. WILL CONT TO MONITOR.
--- NOTE | 2018-11-21 18:58 | NUR ---
PATIENT AROUSABLE NO DISTRESS, REFUSED REINA CARE, PT HAS MOD BM. REINA CARE PROVIDED BY 2 RN. REPOSITION TO RT SIDE. BROTHER REMAIN AT BEDSIDE. CONT TO MONITOR.
--- NOTE | 2018-11-21 19:00 | NUR ---
RECEIVED REPORT FROM ABBEY GAMING. ASSUMING ALL CARE
--- NOTE | 2018-11-21 19:10 | NUR ---
RECEIVED PT LAYING IN BED. PT IS AWAKE. NOT ANSWERING ANY QUESTIONS AT THIS TIME. ABLE TO FOLLOW COMMANDS. EYES OPEN TO VERBAL STIMULI. PUPILS WITH BRISK REACTION TO LIGHT 3 MM. RIJ INTACT, PATENT, SECURED, DRESSING CDI. EENT FREE OF DISCHARGE. PT BREATHING IS E/U ON 3 L NC. FINE CRACKLES NOTED TO BUL AND DIMIN TO BLL. SYMMETRICAL RISE AND FALL OF CHEST NOTED. PT WITH ICD TO LT CHEST WALL. CHEST WALL EQUAL AND SYMMETRICAL. DOPAMINE DRIP INFUSING AT 1 MCG/KG/MIN. WEAK PULSES NOTED TO BUE/BLE. SKIN IS WARM AND DRY. CAP REFILL <2 SECS. EDEMA NOTED TO BUE/BLE. LEFT SHOULDER IV SALINE LOCKED. LASIX DRIP INFUSING @ 7.5 ML/HR AND VANCO INFUSING @ 125 ML/HR. GENERALIZED WEAKNESS. NO JOINT SWELLING/DEFORMITY NOTED. PT ON BILAT SOFT WRIST RESTRAINT FOR PT SAFETY, GOOD CIRCULATION NOTED. PT WITH POOR APPETITE. ABD IS SOFT, ROUND, NONTENDER TO PALPATION. BOWEL SOUNDS ACTIVE X 4 QUADRANTS. NO BM NOTED. PT WITH STERLING INTACT, SECURED, DRAINING VIA GRAVITY WITH YELLOW COLORED URINE. ECCHYMOSIS NOTED TO BUE. ABRASION TO MID BACK NOTED. PT CALM AT THIS TIME. FAMILY AT BEDSIDE. BED IN LOW POSITION. CALL LIGHT IN REACH. WILL CONT TO MONITOR
--- NOTE | 2018-11-21 20:00 | NUR ---
PATIENT MORE AWAKE AT THIS TIME. ABLE TO FOLLOW COMMANDS AND OPEN EYES. PT SPEAKING AT THIS TIME TO FAMILY MEMBERS. PT MEDICATED PER EMAR WITH PO MED. HOB ELEVATED. TOLERATED WELL. NO S/S OF DISTRESS NOTED.
--- NOTE | 2018-11-21 21:00 | NUR ---
PT CALM AT THIS TIME, REQUESTING TO HAVE BILAT SOFT WRIST RESTRAINTS REMOVED AT THIS TIME. PT IN AGREEMENT THAT HE WILL NOT PULL OFF HIS NC OR CENTRAL LINE. FAMILY AT BEDSIDE. EDUCATED ON IMPORTANCE OF KEEPING NC ON FOR PROPER OXYGENATION. MADE AWARE THAT IF HE ATTEMPTS TO PULL ON HIS LINES, RESTRAINTS WILL BE REAPPLIED
--- NOTE | 2018-11-22 00:37 | NUR ---
DR. LO AT BEDSIDE. UPDATES PROVIDED. NO NEW ORDERS
--- NOTE | 2018-11-22 02:50 | NUR ---
NIBP 108/62, MAP 78, HR 86. DOPAMINE INFUSION TURNED OFF AT THIS TIME.
[2018-11-22 03:20] VITALS: BP 96/64
[2018-11-22 04:57] LABS: CALCIUM 9.1 mg/dL (8.5-10.1); CHLORIDE SERUM 89 mmol/L (98-107); GFR1 > 60 mL/min; GLUCOSE SERUM 174 mg/dL (74-106); MAGNESIUM 1.5 mg/dL (1.8-2.4); PHOSPHOROUS 2.2 mg/dL (2.5-4.9); SODIUM SERUM 139 mmol/L (136-145)
[2018-11-22 05:05] LABS: CARBON DIOXIDE > 45.0 mmol/L (21-32); POTASSIUM SERUM 1.8 mmol/L (3.5-5.1)
--- NOTE | 2018-11-22 05:15 | NUR ---
NOTIFIED DR. GARCÍA OF CRITICAL LAB RESULT: POTASSIUM 1.8 AND CO2 >45. AWAITING ORDERS
[2018-11-22 05:25] LABS: BASOPHIL % 0 % (0-2)
[2018-11-22 05:27] LABS: PLATELET COUNT 43 x10^3mcL (130-400)
--- NOTE | 2018-11-22 05:45 | NUR ---
PT HAD A LARGE LOOSE BLOODY BM. STOOL SAMPLE OBTAINED AND SENT TO LAB. FULL BED BATH PROVIDED. PERICARE AND STERLING CARE PROVIDED. GOWN AND LINENS CHANGED
--- NOTE | 2018-11-22 07:12 | NUR ---
REPORT GIVEN TO KEITH GAMING. ALL QUESTIONS/CONCERNS ADDRESSED AT THIS TIME. ENDORSING ALL CARE
[2018-11-22 08:00] VITALS: BP 99/70
--- NOTE | 2018-11-22 08:00 | NUR ---
LETHARGIC WITH EYES CLOSED. LITTLE TO NO EYE CONTACT. RESPONDS TO VERBAL COMMAND. ON 02 2L NC. ALERT TO SELF, NOT ALWAYS TO PLACE AND TO FAMILY.HOB ELEVATED TO FACILITATE BREATHING. EDEMA TO EXTREMITIES. POOR APPETITE WITH BREAKFAST. PREFERS ORAL FLUIDS.STERLING DRAINING DARK YELLOW URINE. ECCYMOTIC AREAS TO MID BACK AND UPPER EXTREMITIES. REPOSITIONED WITH PILLOWS FOR COMFORT. MOD TO MAX ASSIST WITH ALL ADL'S. POOR APPETITE WITH BREAKFAST. ON LASIX DRIPGRETCHEN #1 OF 2 INFUSING. CALL LIGHT WITHIN REACH.
--- NOTE | 2018-11-22 10:01 | NUR ---
DR. US MEJIA AND DR. DAY TO SEE PT. NEW ORDERS OBTAINED.
--- NOTE | 2018-11-22 10:32 | NUR ---
LASIX STOPPED ORDERED BY DR. DAY.
--- NOTE | 2018-11-22 12:00 | NUR ---
REMAINS LETHARGIC ALTHOUGH MORE VERBAL MORE EYE CONTACT. CONTINUES TO BE TOTAL CARE. TURNED AND REPOSITIONED Q [address] Bg MEJIA AWARE OF BLOOD TINGED PASTY STOOLS. GOOD OUTPUT IN STERLING. NS INFUSING 100 CC HOUR,
[2018-11-22 13:34] LABS: CALCIUM 9.5 mg/dL (8.5-10.1); CHLORIDE SERUM 87 mmol/L (98-107); GFR1 > 60 mL/min; GLUCOSE SERUM 166 mg/dL (74-106); SODIUM SERUM 132 mmol/L (136-145)
--- NOTE | 2018-11-22 13:39 | NUR ---
DR. SMITH INFORMED OF POTASSIUM 2.1
[2018-11-22 13:46] LABS: CARBON DIOXIDE > 45.0 mmol/L (21-32); POTASSIUM SERUM 2.1 mmol/L (3.5-5.1)
--- NOTE | 2018-11-22 14:19 | NUR ---
PT WILL BE GOING TO ROOM 220B RN WILL BE ABBEY. CONTINUES ON SODIUM PHOSPHATE,NS 50 CC HOUR FIRST LITER. CONTINUES WITH POOR APPETITE. ABLE TO SWALLOW ORAL MEDS CRUSHED WITH APPLESAUCE. PREFERS ORAL FLUIDS.
--- NOTE | 2018-11-22 14:45 | NUR ---
REPORT GIVEN TO ABBEY GAMING. CENTRAL LINE TO BE DC'D PRIOR TO TRANSFER. NEW IV TO LEFT HAND.PT WILL BE GOING TO RM 220 B
--- NOTE | 2018-11-22 15:53 | NUR ---
PATIENT ARRIVED TO 2SOU[facility] FROM ICU, RESTING IN BED. DENIES PAIN, W MILD WEINER. RECEIVED PATIENT AND REPORT FROM MEKHI PARKER. FAMILY AT BEDSIDE, IV L SHOULDER INFUSING SODIUM PHOSPATE, LEFT HAND INFUSING NS & MAGNESIUM, STERLING DRAINING BELOW PATIENT ON BED FRAME. CALL LIGHT IN REACH, BED IN LOWEST POSITION, BED ALARM ON.
--- NOTE | 2018-11-22 17:06 | NUR ---
PATIENT IN BED RESTING, FAMILY AT BEDSIDE. PRN TYLENOL GIVE PO, TOLERATED. IV POTASSIUM INFUSING TO L HAND. CALL LIGHT IN REACH, BED IN LOWEST POSITION, OFFERED FURTHER ASSISTANCE. WILL CONTINUE TO MONITOR
--- NOTE | 2018-11-22 17:19 | NUR ---
PATIENT IN BED, RESTING. NO SIGNS OF SOB, PAIN. FINGERSTICK IS 147, NO COVERAGE NEEDED. WILL CONTINUE TO MONITOR
--- NOTE | 2018-11-22 18:55 | NUR ---
PATIENT IN BED. RESTING, NO SIGNS OF DISTRESS, PAIN, SOB. FAMILY AT BED SIDE. IV INFUSING VANCO TO L SHOULDER. PO LACTINEX AT BEDSIDE, PATIENT ASLEEP AND FAMILY AWARE. CALL LIGHT IN REACH, BED IN LOWEST POSITION. STERLING DRAINING, 850 ML EMPTIED. WILL ENDORSE TO ONCOMING NURSE.
--- NOTE | 2018-11-22 19:15 | NUR ---
RECEIVED PT LAYING IN BED, NO ACUTE DISTRESS NOTED, DENIES PAIN OR DISCOMFORT AT THIS TIME. DROWSY, AROUSABLE TO VERBAL STIMULIE, ORIENTED TO PERSON AND PLACE, SPEECH SLOW AND APPRORPAITE. MED-SURG, NO TELE, DENIES CP OR PRESSURE, PACEMAKER TO L UPPER CHEST WALL. +2 EDEMA TO BLE, +1 TO BUE, WEAK PULSES B/L. BREATHING ON 2L NC, EVEN AND UNLABORED, DENIES SOB OR DYSPNEA, LUNGS DIM TO BASES, O2 SAT 94% ABD ROUND AND SOFT WITH ACTIVE BOWEL SOUNDS, DENIES N/V, LAST BM EARLIER TODAY, WATERY AND BLOOD TINGED. STERLING CATH IN PLACE DRAINING YELLOW URINE TO GRAVITY, NO PENILE RO SCROTAL EDEMA. GENERALIZED WEAKNESS NOTED, UP WITH P.T., TURN AND REPOSITION Q2H. ABRASION AND ECCHYMOSIS TO MID BACK, STRIP WINDER. SCATTERED ECCHYMOSIS TO BUE, STRIP WINDER. IV TO LH IN PLACE, INFUSING VANCO AND KRIDER AT THIS TIME, NO PAIN, REDNESS, OR SWELLING NOTED. IV TO L SHOULDER IN PLACE, S/L. BED IN LOWEST POSITION WITH SIDE RAILS UPX2 AND BED ALARM ACTIVATED. COMFORT AND SAFETY MEASURES IN PLACE. FALL PRECAUTIONS IN PLACE. CALL LIGHT WITHIN REACH. WILL CONTINUE TO MONITOR
[2018-11-22 20:37] VITALS: BP 82/57
--- NOTE | 2018-11-22 21:40 | NUR ---
ALL DUE MEDS GIVEN. KCL LIQUID MIXED WITH APPLE JUICE AND PT ABLE TO TAKE, ASPIRATION PRECAUTIONS UTILIZED. PT'S BED SIDE BLOOD SUGAR 179, INSULIN SLIDING SCAL COVERAGE NOT GIVEN DUE TO PT'S POOR PO INTAKE AND POOR APPETITE. DR. GARCÍA MADE AWARE
--- NOTE | 2018-11-22 23:15 | NUR ---
PT HAD WATERY, DARK BROWN, STOOL WITH CHUNKS. PERICARE PROVIDED. PT REPOSITIONED FOR COMFORT, REQUESTED TO BE TURNED TO RIGHT SIDE. ABLE TO HELP WITH REPOSITIONING. NO ACUTE DISTRESS NOTED. BREATHING ON 2L NC, EVEN AND UNLABORED. CALL LIGHT WITHIN REACH. WILL CONTINUE TO MONITOR
[2018-11-23 05:29] VITALS: BP 117/74
--- NOTE | 2018-11-23 05:53 | NUR ---
PT COMPLIED WITH NURSING CARE THROUGHOUT THE SHIFT WITH NO ACUTE EVENTS OVERNIGHT. PT APPEARS A LOT MORE ALERT, ABLE TO VERBALIZE NEEDS MORE, EASILY AROUSABLE TO VERBAL STIMULI. NO ACUTE DISTRESS NOTED AT THIS TIME, PT LAYING IN BED BREATHING EVEN AND UNLABORED. COMFORT AND SAFETY MEASURES MAINTAINED. ALL NEEDS ASSESSED AND ATTENDED TO. CALL LIGHT WITHIN REACH. WILL ENDORSE CARE TO DAY SHIFT NURSE
[2018-11-23 06:48] LABS: BASOPHIL % 0.1 % (0-2); PLATELET COUNT 55 x10^3mcL (130-400); RED CELL DISTRIBUTION WIDTH 17.6 % (11.5-14.5)
[2018-11-23 06:54] LABS: CALCIUM 8.3 mg/dL (8.5-10.1); CHLORIDE SERUM 86 mmol/L (98-107); CREATININE SERUM 0.6 mg/dL (0.7-1.3); GFR1 > 60 mL/min; GLUCOSE SERUM 150 mg/dL (74-106); PHOSPHOROUS 2.1 mg/dL (2.5-4.9); SODIUM SERUM 134 mmol/L (136-145)
[2018-11-23 07:01] LABS: CARBON DIOXIDE > 45.0 mmol/L (21-32)
--- NOTE | 2018-11-23 07:02 | NUR ---
RECEIVED CRITICAL REPORT FOR K 2.4 AND CO2 GREATER THAN 45. DR. DE LA CRUZ MADE AWARE. WILL ENDORSE TO DAY SHIFT NURSE
[2018-11-23 07:13] LABS: POTASSIUM SERUM 2.4 mmol/L (3.5-5.1)
[2018-11-23 10:20] VITALS: BP 93/51
--- NOTE | 2018-11-23 11:11 | NUR ---
SPOKE WITH DR DAY. WANTS TO ADMINISTER NS @ 50 CONTINUOUS AND 15[address] DAY TO PLACE OTHER ORDERS.
--- NOTE | 2018-11-23 11:54 | NUR ---
SPOKE WITH DR MEJIA AND INFORMED OF NAUSEA, NO C/O PAIN, AND CONTINUED DECERASE IN APPETITE.
[2018-11-23 12:10] LABS: BILIRUBIN DIRECT 7.65 mg/dL (0.0-0.2)
[2018-11-23 12:20] LABS: ALBUMIN 2.8 g/dL (3.4-5.0); TOTAL PROTEIN, SERUM 5.3 g/dL (6.4-8.2)
[2018-11-23 12:23] LABS: BILIRUBIN TOTAL 14.94 mg/dL (0.20-1.00)
[2018-11-23 13:42] LABS: CALCIUM 8.8 mg/dL (8.5-10.1); CHLORIDE SERUM 88 mmol/L (98-107); CREATININE SERUM 0.6 mg/dL (0.7-1.3); GFR1 > 60 mL/min; GLUCOSE SERUM 160 mg/dL (74-106); SODIUM SERUM 133 mmol/L (136-145)
[2018-11-23 13:52] LABS: CARBON DIOXIDE > 45.0 mmol/L (21-32)
[2018-11-23 15:16] LABS: POTASSIUM SERUM 2.8 mmol/L (3.5-5.1)
--- NOTE | 2018-11-23 17:18 | NUR ---
SPOKE WITH DR DE LA CRUZ TO NOTIFY THAT PT IS STILL AGITATED AFTER 1MG ATIVAN IVP. PTIS TRYING TO GET OUT OF BED AND HAS PULLED OUT ONE IV
[2018-11-23 17:29] VITALS: BP 100/66
--- NOTE | 2018-11-23 17:36 | NUR ---
SPOKE WITH [facility] TO CONFIRM COMPATIBILITY OF MERREM WITH KPHOS. PHARMACY INSTRUCTED TO HOLD KPHOS WHILE MERREM IS INFUSING AND THEN RESTART. PHARMACY ALSO STATED THAT KPHOS AND K RIDER ARE OK TO ADMINISTER TOGETHER AT ORDERED RATES.
--- NOTE | 2018-11-23 19:50 | NUR ---
RECEIVED PT RESTING WITH EYES CLOSED, NODS, GRUNTS OR VERBALIZES SIMPLE RESPONSES WHEN ASKED QUESTIONS. UNABLE TO ASSESS ORIENTATION OR ALERTNESS AT THIS TIME, PT UNABLE TO COMPLY TO VERBAL REQUESTS MADE. NO INDICATION OF DISTRESS OR PAIN NOTED. PT IS MEDSURG, FOUND PT ON RA, BREATHING APPEARS MILDLY LABORED. NO C/O RESP. DISCOMFORT NOTED AT THIS TIME. PT HAS STERLING CATH IN PL, DRAINING TEA-COLORED URINE TO GRAVITY. IV TO LH PATENT AND INTACT. NO REDNESS, SWELLING OR PAIN NOTED TO AREA. ALL SAFETY MEASURES MAINTAINED. CALL LIGHT AND PERSONAL ITEMS IN REACH. EX-, EMILIA AT BEDSIDE. WILL CONTINUE TO MONITOR.
--- NOTE | 2018-11-23 20:09 | NUR ---
REPORT GIVEN TO SAMANTHA GAMING. ALL QUESTIONS AND CONCERNS ADDRESSED. ALL CARES ENDORSED.
[2018-11-23 20:34] VITALS: BP 97/68
--- NOTE | 2018-11-23 22:10 | NUR ---
PT REFUSING TO TAKE ORAL MEDS, PT NOT FULLY AROUSED. DR. GARCÍA MADE AWARE. WILL CONTINUE TO MONITOR.
--- NOTE | 2018-11-23 22:30 | NUR ---
TRANSFER ORDERS RECEIVED FOR TELE. TELE MONITOR APPLIED, SHOWING ST 109 WITH BBB AT THIS TIME. WILL CONTINUE TO MONITOR.
--- NOTE | 2018-11-24 00:15 | NUR ---
PT GIVEN ATIVAN IVP FOR INCREASED AGITATION AND MULTIPLE REMOVAL OF TELE MONITOR AND ATTEMPT TO REMOVE FC. CONTINUOUS REORIENTATION PROVIDED, NON-EFFECTIVE. SAFETY AND COMFORT PRECAUTIONS MAINTAINED. CALL LIGHT IN REACH. BED ALARM ON. WILL CONTINUE TO MONITOR.
--- NOTE | 2018-11-24 01:10 | NUR ---
DR. LO IN TO SEE PT.
--- NOTE | 2018-11-24 01:43 | NUR ---
PT MOVED TO ROOM NEAR NURSE'S STATION FOR CLOSER MONITORING AND SAFETY. PT IS INCREASINGLY RESTLESS AND AGITATED. ALL SAFETY PRECAUTIONS MAINTAINED. CALL LIGHT IN REACH. BED IN LOW POSITION. BED ALARM ON. WILL CONTINUE TO MONITOR.
--- NOTE | 2018-11-24 03:09 | NUR ---
PT RESTING WITH EYES CLOSED AT THIS TIME. NO INDICATION OF DISTRESS, PAIN OR AGITATION NOTED. BREATHING APPEARS E/U, VISIBLE CHEST RISE AND FALL. SAFETY PRECAUTIONS IN PL. CALL LIGHT IN REACH. WILL CONTINUE TO MONITOR.
--- NOTE | 2018-11-24 03:43 | NUR ---
PT GIVEN ATIVAN IVP FOR INCREASING AGITATION AND RESTLESSNESS. PT STATES "I GOT TO GO." WHILE ATTEMPTING TO GET OUT OF BED, HE ALSO IS CONTINUILY ATTEMPTING TO REMOVE STERLING CATH, STATING "I HAVE TO PEE." FREQUENT REORIENTATION PROVIDED, TEACHER ASSOCIATE AT BEDSIDE. WILL CONTINUE TO MONITOR.
--- NOTE | 2018-11-24 04:04 | NUR ---
STERLING CATH PROVIDED, PT CLEANED AND Z GUARD APPLIED TO PERINEAL, BUTTOCK AND GROIN AREA. ALL SAFETY AND COMFORT MEASURES MAINTAINED AT THIS TIME. WILL CONTINUE TO MONITOR.
--- NOTE | 2018-11-24 05:25 | NUR ---
NOTIFIED THAT PT HAD A RUN OF VTACH, PT IN STABLE CONDITION. AROUSABLE, BREATHING E/U. WILL NOTIFY MD AND CONTINUE TO MONITOR.
[2018-11-24 05:46] VITALS: BP 11/76
--- NOTE | 2018-11-24 06:00 | NUR ---
PAGED DR. GARCÍA TO MAKE AWARE THAT PT SHOWED VTACH ON TELE STRIP.
--- NOTE | 2018-11-24 06:04 | NUR ---
PT RESTED INTERMITTENTLY DURING THE NIGHT WITH EPISODES OF RESTLESSNESS. PT IS NOW RESTING WITH EYES CLOSED, BREATHING E/U, EVEN CHEST RISE AND FALL. NO DISTRESS NOTED AT THIS TIME. SAFETY MEASURES MAINTAINED. CALL LIGHT IN REACH. WILL CONTINUE TO MONITOR AND ENDORSE CARE TO AM NURSE.
--- NOTE | 2018-11-24 06:25 | NUR ---
PAGED GATED DR. GARCÍA TO MAKE AWARE OF PT'S EARLIER EPISODE OF VTACH. PT IN STABLE CONDITION. WILL CONTINUE TO MONITOR.
[2018-11-24 07:08] LABS: CALCIUM 8.3 mg/dL (8.5-10.1); CHLORIDE SERUM 91 mmol/L (98-107); CREATININE SERUM 0.5 mg/dL (0.7-1.3); GFR1 > 60 mL/min; GLUCOSE SERUM 157 mg/dL (74-106); MAGNESIUM 1.7 mg/dL (1.8-2.4); PHOSPHOROUS 2.4 mg/dL (2.5-4.9); SODIUM SERUM 137 mmol/L (136-145)
--- NOTE | 2018-11-24 07:10 | NUR ---
RECEIVED REPORT FROM BENEFIT DIRECTOR NURSE AT THIS TIME. PATIENT RESTING COMFORTABLY IN BED. NO APPARENT DISTRESS OR DISCOMFORT NOTED. BREATHING EVEN AND UNLABORED. NO INDICATIONS OF CHEST PAIN AT THIS TIME. IV PATENT AND INTACT. ALL NEEDS ATTENDED TO. WILL CONTINUE TO MONITOR
[2018-11-24 07:18] LABS: PLATELET COUNT 66 x10^3mcL (130-400); RED CELL DISTRIBUTION WIDTH 16.5 % (11.5-14.5)
[2018-11-24 07:19] LABS: BASOPHIL % 0 % (0-2)
[2018-11-24 07:25] LABS: POTASSIUM SERUM 2.7 mmol/L (3.5-5.1)
[2018-11-24 07:26] LABS: CARBON DIOXIDE 42.5 mmol/L (21-32)
--- NOTE | 2018-11-24 07:40 | NUR ---
DR DE LA CRUZ AWARE OF PATIENTS POTASSIUM 2.7 AND CARBON DIOXIDE 42.5. ALL QUESTIONS AND CONCERNS ADDRESSED. ALL NEEDS ATTENDED TO. WILL CONTINUE TO MONITOR THE PATIENT
[2018-11-24 07:41] VITALS: BP 95/72
[2018-11-24 08:55] VITALS: BP 108/82
--- NOTE | 2018-11-24 09:27 | NUR ---
IV TO LEFT HAND PULLED OUT WITH CATH INTACT. WILL PUT IN NEW IV. ALL NEEDS ATTENDED TO. WILL CONTINUE TO MONITOR
[2018-11-24 09:30] VITALS: BP 108/82
--- NOTE | 2018-11-24 12:57 | NUR ---
PATIENT RESTING IN BED AT THIS TIME. NO APPARENT DISTRESS NOTED. FAMILY AT BEDSIDE. ALL NEEDS ATTENDED TO. POTASSIUM IV ADMINISTERING AT THIS TIME. NO ADVERSE EFFECTS NOTED. WILL CONTINUE TO MONITOR
--- NOTE | 2018-11-24 16:08 | NUR ---
DR DAY AT BEDSIDE REVIEWING POC WITH PATIENT AND FAMILY MEMBER AT BEDSIDE. ALL QUESTIONS AND CONCERNS ADDRESSED. ALL NEEDS ATTENDED TO
[2018-11-24 16:35] VITALS: BP 114/81
--- NOTE | 2018-11-24 18:42 | NUR ---
PATIENT RESTING IN BED AT THIS TIME. NO APPARENT DISTRESS OR DISCOMFORT NOTED. IV PATENT AND INTACT. ALL QUESTIONS AND CONCERNS ADDRESSED. SAFETY PRECAUTIONS MAINTAINED. ALL NEEDS ATTENDED TO. WILL ENDORSE ALL CARE TO ENGINEERING MODEL MAKER NURSE WELL POTASSIUM PHOSPHATE IV ADMINISTRATION.
--- NOTE | 2018-11-24 19:56 | NUR ---
PT RECIEVED FROM THE DAY SHIFT RN, PT IS ALERT AND ORIENTED TO SELF ONLY, DAUGHTER AT THE BEDSIDE. PT APPEARS TO BE AGITATED AND ATTEMPTING TO PULL HIS STERLING CATHETER AND TELEMETRY PATCHES WELL. IV ATIVAN GIVEN AT THIS TIME. SAFETY AND COMFORT MEASURES MAINTAINED, BED IN LOWEST POSITION , CALL LIGHT WITHIN REACH. WILL CONTINUE TO MONITOR AT THIS TIME.
[2018-11-24 21:20] VITALS: BP 115/85
--- NOTE | 2018-11-24 23:39 | NUR ---
PT IS IN BED AT THIS TIME. NO ACUTE DISTRESS NOTED. PT WAS AGITATED EARLIER IN THE SHIFT, IVP ATIVAN WAS GIVEN. SITTER IS AT THE BEDSIDE. PT STILL AT TIMES ATTEMPTS TO PULL OUT STERLING CATHETER AND TELEMETRY, AT THIS TIME PT IS RESTING IN BED WITH EYES CLOSED. NO SOB NOTED. NO FACIAL GRIMACING NOTED. PT HAS BEEN ORIENTED TO SELF ONLY AND RESPONDS TO NAME. PT IS ON 2L O2 VIA NASAL CANULA. SAFETY AND COMFORT MEASURES MAINTAINED, CALL LIGHT WTIHIN REACH. WILL CONTINUE TO MONITOR AT THIS TIME.
--- NOTE | 2018-11-25 00:30 | NUR ---
PT IS IN BED AT THIS TIME. PT LUNGS SOUNDS ARE CONGESTED AND HEARD UPON AUSCULTATION. PT RESPIRATIONS ARE AT 24 AT THIS TIME. PT O2 SATS AE 95 ON 2L O2 NC
--- NOTE | 2018-11-25 00:40 | NUR ---
DR GAYTAN MADE AWARE OF PT STATUS AT THIS TIME. PER DR GAYTAN CONTINUE OBSERVATION AND SHE WILL BE UP TO LOOK AT THE PATIENT HERSELF. NO FURTHER ORDERS GIVEN
--- NOTE | 2018-11-25 01:28 | NUR ---
MARKET MAKER CALLED AND NOTIFIED MEKHI JAUREGUI THAT PT HAS BEEN SUSTAINING HR IN THE 150 [address]IGH 140'S. DR GAYTAN CALLED AND AWARE OF SITUATION. PER DR GAYTAN PRN BREATHING TX ORDER. NO FURTHER ORDERS GIVEN AT THIS TIME.
--- NOTE | 2018-11-25 02:20 | NUR ---
DR. GAYTAN AT BEDSIDE, PT RECEIVING BREATHING TREATMENT, PT HAS TEMP 101.3F TEMPORAL. WILL WAIT FOR TORADOL ORDER. PER DR. GAYTAN, WILL MANAGE TEMP 1ST AND NOT ADMINISTER CARDIZEM ORDERED. WILL CONTINUE TO MONITOR.
--- NOTE | 2018-11-25 02:35 | NUR ---
RT COMPLETED BREATHING TREATMENT AND SUCTIONED BRIGHT REDDENED SECRETIONS FROM BACK OF THROAT, RT REPORTS DRY CRUSTED BLOOD IN MOUTH. PT SOUNDS LESS CONGESTED. WILL MEDICATE PER ORDER.
[2018-11-25 05:32] VITALS: BP 122/90
--- NOTE | 2018-11-25 05:47 | NUR ---
PT RESTED IN SHORT INTERVALS THROUGHOUT THE SHIFT, PT WAS AGITATED AND RESTLESS IN THE BEGINNING OF THE SHIFT, PT IS ALERT AND ORIENTED TO SELF ONLY. PT HAS HAD RAPID RESPIRATIONS RANGING FROM 36-44. DR GAYTAN AWARE OF THE SITUATION NO NEW ORDERS AT THIS TIME. PT HAD WET CONGESTED BREATHING, BREATHING TX GIVEN, LUNGS SOUNDS ARE CLEAR AT THIS TIME. TORADOL GIVEN ( SEE MAR) FOR FEVER OF 101.3. ELEVATED TEMP RESOLVED. STERLING CATHETER IN PLACE AND DRAINING FREELY. ATIVAN GIVEN FOR RESTLESS AND AGITATION ( SEE MAR). SITTER AT THE BEDSIDE. IV INTACT AT THIS TIME. SAFETY AND COMFORT MEASURES MAINTAINED, BED IN LOWEST POSITION, CALL LIGHT WITHIN REACH. WILL ENDORSE CONTINUITY OF CARE TO THE ONCOMING RN. WILL CONTINUE TO MONITOR AT THIS TIME.
--- NOTE | 2018-11-25 07:35 | NUR ---
RECEIVED PT REPORT FROM KLYSTROM TUBE TESTER NURSE. PT SEEN REST ON BED WITH SITTER AT BED SIDE. DR. DE LA CRUZ AT BED SIDE. MADE DR. DE LA CRUZ AWARE PT'S HR 135, RR 44, BREATHING O2 2L VIA NC, O2 SAT 94% PER REPORT, PT NOT ABLE TO TAKE ANY ORAL MEDS AT THIS TIME. DR. DE LA CRUZ STATED SHE WILL ORDER SONE MED TO CORRECT PT'S FAST HR AND BREATHING PROBLEM. STERLING IN PLACE. JAXON URINE, 250ML OVER NIGHT PER REPORT. IV SITE PATENT, INTACT, IVF INFUSING AT 18ML/ HR.
[2018-11-25 07:45] LABS: CALCIUM 8.6 mg/dL (8.5-10.1); CARBON DIOXIDE 34.1 mmol/L (21-32); CHLORIDE SERUM 93 mmol/L (98-107); CREATININE SERUM 0.8 mg/dL (0.7-1.3); GFR1 > 60 mL/min; GLUCOSE SERUM 180 mg/dL (74-106); MAGNESIUM 2.1 mg/dL (1.8-2.4); PHOSPHOROUS 3.3 mg/dL (2.5-4.9); POTASSIUM SERUM 3.6 mmol/L (3.5-5.1); SODIUM SERUM 140 mmol/L (136-145)
[2018-11-25 08:00] VITALS: BP 108/80
[2018-11-25 08:01] LABS: BASOPHIL % 0 % (0-2); PLATELET COUNT 100 x10^3mcL (130-400); RED CELL DISTRIBUTION WIDTH 18.2 % (11.5-14.5)
--- NOTE | 2018-11-25 08:41 | NUR ---
SUCTIONED PT AND OBTAINED MODERATE TO LARGE PRAMOD BLOOD FROM BACK OF PATIENT THROAT. PT SOUNDED CONGESTED (UPPER AIRWAY, LUNGS SOUNDED GOOD). NO TRAUMA DONE TO PATIENT WHILE SUCTIONING. TRIED TO GET PATIENT TO COUGH BUT WAS INEFFECTIVE. RN AWARE. PT ON 3L CANNULA SATURATING 92-93%. HR STILL INCREASED IN THE 130'S. PT SOUNDS BETTER AFTER SUCTIONING. WILL CONTINUE TO MONITOR PT.
--- NOTE | 2018-11-25 08:45 | NUR ---
RT PROVIDED SUCTION AND BREATHING TREATMENT. BLOOD NOTED IN THE PHLEGM. PT'S O2 SAT IS AROUND 92%-95% ON O2 3L VIA NC. WILL CONTINUE TO MONITOR.
--- NOTE | 2018-11-25 09:55 | NUR ---
PT'S HR IS REMAINING AT AROUND 135, RR >40. MORPHINE GIVEN PER PRN ORDER. WILL CONTINUE TO CHECK.
--- NOTE | 2018-11-25 10:34 | NUR ---
GOT LAB REPORT LAC ACID 4.9, PAGED DR. JENSEN, NO CALL BACK. PAGED GATE DR. JENSEN ABOUT PT'S CRITICAL LAB RESULT.
--- NOTE | 2018-11-25 10:58 | NUR ---
PT'S RR STILL > 40, ATIVAN GIVEN PER PRN ORDER. PT IS STILL LETHARGIC. NO VERBAL RESPONSE AND EYES OPEN TO TACTITLE STIMULI. WILL CONTINUE TO MONITOR.
--- NOTE | 2018-11-25 11:36 | NUR ---
JUAN RAMON CHECK PT'S TEMP 101.2. PT IS NOT ABLE TO TAKE PO MEDS. PAGED DR. JENSEN. WAITING FOR RESPONSE. STARTED COOLING MEASURES.
--- NOTE | 2018-11-25 12:10 | NUR ---
PT'S DAUGHTER CAME. DR. DE LA CRUZ TALKED TO HER. DR. DE LA CRUZ AWARE PT'S ELEVATED TEMP, CRITICAL LAB LAC ACID 4.9, AND PT IS UNABLE TO TAKE ANY ORAL MEDS. WAITING FOR NEW ORDER.
--- NOTE | 2018-11-25 12:31 | NUR ---
WENT IN TO CHECK ON PATIENT. PT APPEARED COMFORTABLE. NO CONGESTION NOTICED. FAMILY SITTING AT BEDSIDE. SATURATION WAS 86-87% ON 3L CANNULA I INCREASED PT TO 5-6L CANNULA AND STOOD AT BEDSIDE. SATURATION UP TO 92-93%. FAMILY EDUCATED AND MADE AWARE OF ALL CHANGES AND INFORMED THEM TO LET ME KNOW IF THEY NEED ANYTHING OR HAVE CONCERNS TO LET THE NURSE KNOW TO CALL ME. NO ISSUES. NOTIFIED RN. WILL CONTINUE TO MONITOR PT.
[2018-11-25 13:19] VITALS: BP 109/76
--- NOTE | 2018-11-25 14:28 | NUR ---
RECHECKED PT'S TEMP STILL 101.5 AFTER TORADOL GIVEN. MADE DR. DE LA CRUZ AWARE, BUT NO NEW MEDS ORDER AT THIS TIME. CONTINUE COOLING MEASURES. WILL CONTINUE TO MONITOR. URINE SPECIMEN COLLECTED FROM STERLING FOR UA.
[2018-11-25 14:51] LABS: UA SPECIFIC GRAVITY >=1.030 (1.005-1.035); microscopic required? YES; urine erythrocyte 1+ (NEGATIVE)
[2018-11-25 17:01] VITALS: BP 112/83
--- NOTE | 2018-11-25 17:07 | NUR ---
PT'S TEMP UP 102.9. MADE DR. DE LA CRUZ AWARE. NO NEW ORDER, JUST CONTINUE TO COOLING MEASURES AND GIVE TORADOL PER PRN ORDER. TORADOL NOT DUE AT THIS TIME. COOLING MEASURES PROVIDED. PT'S RR > 40, O2 SAT 96% ON O2 4L VIA NC. WILL GIVE MORPHINE PER PRN ORDER.
--- NOTE | 2018-11-25 18:33 | NUR ---
PT'S TEMP STILL 102.6, TORADOL GIVEN PER PRN ORDER. COOLING MEASURES CONTINUES. PT'S EX- AT BED SIDE. WILL RECHECK.
--- NOTE | 2018-11-25 19:36 | NUR ---
RECHECK PT'S TEMP ORAL 99.3. PT IS STILL LETHARGIC, NOT AROUSABLE. PT BREATHING ON O2 4L VIA NC, O2 SAT 96%, RR AROUND 40. URINE OUTPUT THROUGH DAY 170ML, URINE COLOR JAXON. IV SITE PATENT, INTACT. SALINE LOCK AFTER ANTIBIOTIC FINISH. PT'S EX- AT BED SIDE. ENDORSE PT'S CARE TO COMING NURSE.
--- NOTE | 2018-11-25 19:52 | NUR ---
SHIFT REASSESSMENT DONE.PATIENT NONVERBAL,LETHARGIC,DNR STATUS.FAMILY AT BEDSIDE.SUPPORTIVE OF CARE.PATIENT HAS O2 AT 2 LITERS.PATIENT BEDBOUND NOW.TOTAL CARE.HEPLOCK RFA,ALL ATB SCHEDULE WILL GIVE TONIGHT.ECCHYMOSIS BUE,BACK NOTED.WILL CHECK OFTEN.
--- NOTE | 2018-11-25 20:45 | NUR ---
DAKSHA EX AT BEDSIDE,VERY SUPPORTIVE OF CARE.PHONE NO. [phone]
--- NOTE | 2018-11-25 21:00 | NUR ---
PATIENT PO MED NOT GIVEN,UNABLE TO SWALLOW,ALL SCHEDULE MEDS ATB WILL GIVE.IV SITE GOOD.
--- NOTE | 2018-11-25 21:10 | NUR ---
SUCTIONED ORALLY,VERY SCANTY SECRETION,SOUND CONGESTED.
[2018-11-25 23:38] VITALS: Ht 170.2 cm; Wt 89.0 kg
[2018-11-26] VITALS (7 sets, daily range): BP systolic 73–100; BP diastolic 49–96
--- NOTE | 2018-11-26 01:34 | NUR ---
SEEN BY DR LO EARLIER,NO NEW ORDER.
--- NOTE | 2018-11-26 03:20 | NUR ---
PATIENT STILL HAS FEVER, 101.8,COOLING MEASURES DONE PROTOCOL,ATB SCHEDULE.PATIENT SUCTIONED,NO SECTRETION OBTAINED,BUT SOUNDS CONGESTED.REPOSITIONED FOR COMFORT,STERLING URINE OUTPUT REMAINS DARK JAXON.
--- NOTE | 2018-11-26 05:22 | NUR ---
PATIENT BLOOD SUGAR 257,DR DE LA CRUZ SAID GIVE 4 UNITS RI FOR NOW.[facility] CHARGE NURSE AWARE.
--- NOTE | 2018-11-26 06:05 | NUR ---
ONLY HAS 100 CC URINE OUTPUT.I AND MEASURED,ATB AND FLUSHES.PATIENT REMAINS EDEMATOUS.WILL ENDORSE TO NEXT SHIFT.
[2018-11-26 06:08] LABS: BASOPHIL % 0.2 % (0-2)
[2018-11-26 06:28] LABS: CALCIUM 8.1 mg/dL (8.5-10.1); CARBON DIOXIDE 32.8 mmol/L (21-32); CREATININE SERUM 2.2 mg/dL (0.7-1.3); MAGNESIUM 2.1 mg/dL (1.8-2.4); POTASSIUM SERUM 4.5 mmol/L (3.5-5.1)
[2018-11-26 06:41] LABS: PLATELET COUNT 107 x10^3mcL (130-400); RED CELL DISTRIBUTION WIDTH 17.7 % (11.5-14.5)
--- NOTE | 2018-11-26 07:44 | NUR ---
PT RESTING IN BED, NO RESPRIATORY DISTRESS NOTED, IN NO APPARANT PAIN, LETHARGIC, NONRESPONSIVE TO VOICE OR TOUCH, DOES NOT OPEN EYES, TELE 5, SINUS TACH, HR 129, PULSES WEAK ROB, TRACE EDEMA BUE, LUNG SOUNDS CONGESTED, 4L HUMIDIFIED OXYGEN, BOWEL SOUNDS ACTIVE, STERLING CATH DRAINING JAXON URINE, GENERALIZED WEAKNESS, BED BOUND, ECCHYMOSIS BUE AND BACK, IV IN RFA SALINE LOCKED. WBC 12.4, PLT 107, CL 94, CO2 32.8, BUN 39.0, CR 2.2, CA 8.1.
--- NOTE | 2018-11-26 09:02 | NUR ---
UPDATED EX DAKSHA ON PT CONDITION VIA TELEPHONE.
--- NOTE | 2018-11-26 10:47 | NUR ---
PT TURNED AND REPOSITIONED ON L SIDE, MOANED WHEN MOVED BUT STILL DID NOT OPEN EYES AT ALL. NO RESPRIATORY DISTRESS NOTED.
--- NOTE | 2018-11-26 11:27 | NUR ---
UPDATED DAUGHTER SHEBA DEAN VIA TELEPHONE.
--- NOTE | 2018-11-26 12:30 | NUR ---
DR DE LA CRUZ NOTIFIED OF ACCUCHECK 223 AND ORDERED TO GIVE PT 3 UNITS HUMULINR INSTEAD OF 6 UNITS. ADVERTISING CLERK AT BEDSIDE.
--- NOTE | 2018-11-26 12:41 | NUR ---
PT RESTING IN BED, NO RESPRIATORY DISTRESS NOTED, NO RESPONSE TO VOICE OR TOUCH. BED ALARM ON, CALL LIGHT WITHIN REACH.
--- NOTE | 2018-11-26 13:22 | NUR ---
PT RESTING IN BED, NO RESPIRATORY DSITRESS NOTED, IN NO APPARANT PAIN. PT PULLED UP AND REPOSITIONED ON R SIDE. CALL LIGHT WITHIN REACH. BED ALARM ON AND BED IN LOWEST POSITION.
--- NOTE | 2018-11-26 13:52 | NUR ---
Initial Nutrition Assessment Dx: Syncope, dehydration, abdominal pain PMHx: CHF, CAD s/p quintuple bypass, DM, HTN PSHx: left eye surgery, left elbow repair, right knee repair Labs: (11/26) Na 140, K 4.5, BG 243H, BUN 39H, Cr 2.2H, Ca 8.1L, WBC 12,4H, H/H 16.1/48 BG readings 11/24-11/26: 138-257 mg/dL with most readings <180 mg/dL. Insulin coverage is provided PRN. Meds: Tylenol, D50%, Cardizem, Lasix, Humulin, Normodyne, Lactinex, Xopenex, Ativan, Megace, Merrem, Vancomycin, Morphine, Zofran, NSIV Diet: Regular PO Intake: Negligible PO intake, 5-10% all meals x 3 days Ht: 68" (170 cm) Wt: 196# (89 kg) BMI: 30. (Obese Class I) IBW: 154# %IBW: 127% UBW: Unable to obtain Age: 63 y/o male Food Allergies: NKFA Skin: Ecchymosis to back and BUE Angel: 14 Edema: + to BUE GI: Last BM x 2 (11/25) Per H&P, pt. admitted with generalized weakness x 2 weeks associated with recent fall with head trauma when heading to EGD procedure for chronic abdominal pain x 3 months. Noted with poor appetite and x 1 episode of vomiting associated with headache, constipation, and malodorous urine prior to admission per pt. daughter. Plans in place for transfer to nursing home care facility for further care per bed huddle discussion. Pt. responses to questions limited d/t drowsiness during visit. Per RN, pt. has been drowsy and not alert since admission. Unable to consume meals and beverages at this time. Noted with periodic episodes of confusion and combativeness with nursing staff per RN and sitter. Providers and other healthcare team suggested initiating nutrition support via NGT, but pt. is unable to tolerate insertion d/t the inability to swallow/ALOC. Possible plans in place to discuss potential comfort care measures at this time, as pt. has poor prognosis per provider. Consult: Poor PO intake Problem with: No c/o N/V/D/C Problems with: Chewing: N Swallowing: N Current appetite: Very poor, unable to consume meals Recent wt change: None %wt change: N/A Vitamin/Supplement use: None Special diet at home: Regular Physical activity: None Education: No diet education provided during visit. Estimated Nutritional Needs Based on actual body weight 89 kg: Energy: 4642-0726 kcal/d (22-24 kcal/kg- weight maintenance) Protein: 71-89 g/d (0.8-1.0g/kg)-maintenance and preservation of lean body mass Fluid: 3220-9272 ml/d (1 ml/kcal-fluid balance) or per doctor Nutrition Diagnosis 1. Inadequate PO intake r/t reported poor appetite and drowsiness during meals AEB documented PO intake negligible with 5-10% intake x 3 days. Intervention/RD recommendations 1. Recommendation to change diet to NPO, as pt. drowsiness and the reported inability to swallow can pose aspiration risks. When pt. is more alert, consider ST swallow evaluation to advance PO diet if able. Monitor/Evaluate Goal: Prevent episodes of aspiration d/t altered level of consciousness by following assessment in 2-3 days. Monitor: Labs, GI function, diet tolerance, weights, skin F/U in 2-3 days as high risk (11/28-11/29)
--- NOTE | 2018-11-26 14:47 | NUR ---
PT RESTING IN BED, NO RESPIRATORY DISTRESS NOTED, IN NO APPARANT PAIN, RECEIVING BREATHING TREATMENT FROM RT.
--- NOTE | 2018-11-26 15:59 | NUR ---
EX DAKSHA AT BEDSIDE REQUESTING TO SPEAK TO DR. DR DE LA CRUZ NOTIFIED. PT RESTING IN BED, NO RESPIRATORY DISTRESS NOTED.
--- NOTE | 2018-11-26 17:44 | NUR ---
PT USING ACCESORY MUSCLES TO BREATHE, LABORED BREATHING, TEMP 103.5, BP 78/56. DR DE LA CRUZ AT BEDSIDE TO ASSESS PT AND SPEAK TO PT . ICE PACKS PLACED ON FOREHEAD AND UNDER BOTH ARM PITS. TORADOL IVP TO BE GIVEN FOR TEMP.
--- NOTE | 2018-11-26 17:51 | NUR ---
PER DR DE LA CRUZ, PT TO BE GIVEN 3 UNITS HUMULINR FOR ACCUCHECK 216.
--- NOTE | 2018-11-26 18:45 | NUR ---
RECHECKED TEMP 102.0, PLACED FRESH ICE PACKS ON PT, AC ON HIGH. DR DE LA CRUZ NOTIFIED. AT BEDSIDE. PT CONT TO BE LETHARGIC AND UNRESPONSIVE TO VOICE AND TOUCH.
--- NOTE | 2018-11-26 19:30 | NUR ---
RECEIVED PT LAYING IN BED, EXWIFE AT BEDSIDE. PT IS NONVERBAL, APHASIC, OBTUNDED, WITH PUPILS SLUGGISH REACTION TO LIGHT. SINUS TACH TO TELE #5. +1 EDEMA TO BUE AND BLE, ANASARCA, WEAK PULSES. BREATHING ON 4L NC WITH USE OF ACCESSORY MUSCLES, RONCHI LUNGS SOUNDS, O2 SAT 98% ABD ROUND AND SOFT WITH HYPOACTIVE BOWEL SOUNDS, NO N/V. STERLING CATH IN PLACE DRAINING MINIMAL AMOUNT OF JAXON URINE TO GRAVITY. BED BOUND, TURN Q2H, SCD IN PLACE. ECCHYMOSIS WITH ABRASION TO MID BACK, SCATTERED ECCHYMOSIS TO BUE. SKIN JAUNDICE. IV TO RFA IN PLACE, S/L, SITE WNL. COMFORT AND SAFETY MEASURES IN PLACE. ALL NEEDS ASSESSED AND ATTENDED TO. CALL LIGHT WITHIN REACH. WILL CONTINUE TO MONITOR
--- NOTE | 2018-11-26 19:34 | NUR ---
ENDORSED CARE TO CELESTE GAMING.
--- NOTE | 2018-11-27 02:00 | NUR ---
PT LAYING IN BED, BREATHING ON 4L NC, USING ACCESSORY MUSCLES. NO SIGNS OF PAIN OR DISCOMFORT NOTED. ZERO OUTPUT NOTED TO F/C SINCE START OF SHIFT. WILL CONTINUE TO MONITOR
--- NOTE | 2018-11-27 04:44 | NUR ---
NO SIGNIFICANT CHANGES TO REPORT, PT COMPLIED WITH NURSING CARE THROUGHOUT THE SHIFT WITH NO ACUTE EVENTS OVERNIGHT. NO DISTRESS NOTED AT THIS TIME, PT LAYING IN BED, BREATHING ON 4L NC WITH USE OF ACCESSORY MUSCLES. PT APPEARS COMFORTABLE, NO SIGNS OF PAIN OR DISCOMFORT. COMFORT AND SAFETY MEASURES MAINTAINED. ALL NEEDS ASSESSED AND ATTENDED TO. CALL LIGHT WITHIN REACH. WILL CONTINUE TO MONITOR AND ENDORSE CARE TO DAY SHIFT NURSE
--- NOTE | 2018-11-27 05:20 | NUR ---
PER TELE #5, PT'S HEART RATE SINUS AYAN AFTER SUSTAINING SINUS TACH DURING THE NIGHT. ASSESSED PT, CESSATION OF BREATHING, PULSES ABSENT. DR. POWELL MADE AWARE.
--- NOTE | 2018-11-27 05:27 | NUR ---
DR. POWELL AT BEDSIDE TO ASSESS PT
--- NOTE | 2018-11-27 05:38 | NUR ---
-DR. POWELL PRONOUNCED PT'S AT 0526 -AT 0530, [facility], VICTOR MANUEL, AND ADMITTING, FILIBERTO MADE AWARE OF PT'S . -AT 0537 SPOKE WITH ELOINA FROM [employer] WHO STATES A CALL BACK WILL PLACED, PROVIDED WITH UNIT PHONE NUMBER -AT [phone], SPOKE WITH CARMITA FROM [facility] AND RECEIVED AUTHORIZATION #[id number]
--- NOTE | 2018-11-27 05:46 | NUR ---
SPOKE WITH PT'S EXWIFE, DAKSHA, UPDATED ON PT'S STATUS. CALLED PT'S DAUGHTER, SHEBA DEAN AND LEFT MESSAGE. WILL ANTICIPATE CALL BACK
--- NOTE | 2018-11-27 05:53 | NUR ---
SPOKE WITH VICTOR MANUEL, [employer], REGARDING RESTRAINTS SECTION IN RECORD OF PAPERWORK. PER VICTOR MANUEL, LEAVE THAT BLANK FOR NOW AND SHE WILL FOLLOW UP WITH NECESSARY EMMANUELLEEL REGARDING THAT SECTION
--- NOTE | 2018-11-27 06:17 | NUR ---
SPOKE WITH DEPUTY CARLOS FROM [employer] WHO HAS RELEASED THE PT'S BODY AT THIS TIME. NO CASE NUMBER GIVEN.
--- NOTE | 2018-11-27 06:40 | NUR ---
POST MORTEM CARE RENDERED. AWAITING ARRIVAL OF FAMILY MEMBERS AT THIS TIME.
--- NOTE | 2018-11-27 06:45 | NUR ---
PT'S DAUGHTER AND HER MOTHER AT BEDSIDE AT THIS TIME. COMFORT AND PRIVACY PROVIDED.
== END 2018-11-27 11:11 | disposition expired | DRG 279 ==
LOC: ED 11:54 → DU 15:56 → IC 11-20 12:19 → MU 11-22 15:34 → DU 11-24 16:50
PROVIDERS: Family Medicine; Internal Medicine Gastroenterology; Internal Medicine Nephrology; Specialist; ADMIT Internal Medicine
PROC: 02HV33Z Insertion of Infusion Device into Superior Vena Cava, Percutaneous Approach (ICD-10-PCS; principal; 2018-11-20)
PROC: B548ZZA Ultrasonography of Superior Vena Cava, Guidance (ICD-10-PCS; 2018-11-20)
DX: K72.00 Acute and subacute hepatic failure without coma (principal); N17.0 Acute kidney failure with tubular necrosis; J96.02 Acute respiratory failure with hypercapnia; E43 Unspecified severe protein-calorie malnutrition; I50.43 Acute on chronic combined systolic (congestive) and diastolic (congestive) heart failure; D68.9 Coagulation defect, unspecified; J18.9 Pneumonia, unspecified organism; E11.22 Type 2 diabetes mellitus with diabetic chronic kidney disease; G90.8 Other disorders of autonomic nervous system; I13.0 Hypertensive heart and chronic kidney disease with heart failure and stage 1 through stage 4 chronic kidney disease, or unspecified chronic kidney disease; E11.65 Type 2 diabetes mellitus with hyperglycemia; D69.6 Thrombocytopenia, unspecified; E87.2 Acidosis; D75.1 Secondary polycythemia; I27.20 Pulmonary hypertension, unspecified; I95.9 Hypotension, unspecified; I25.5 Ischemic cardiomyopathy; E87.6 Hypokalemia; N18.9 Chronic kidney disease, unspecified; E86.0 Dehydration; K76.0 Fatty (change of) liver, not elsewhere classified; Z95.1 Presence of aortocoronary bypass graft; I25.10 Atherosclerotic heart disease of native coronary artery without angina pectoris; Z60.2 Problems related to living alone; I50.810 Right heart failure, unspecified; E78.5 Hyperlipidemia, unspecified; E87.1 Hypo-osmolality and hyponatremia; N28.1 Cyst of kidney, acquired; I46.9 Cardiac arrest, cause unspecified; Z51.5 Encounter for palliative care; E83.39 Other disorders of phosphorus metabolism; I08.1 Rheumatic disorders of both mitral and tricuspid valves; Z66 Do not resuscitate; I25.2 Old myocardial infarction; Z79.4 Long term (current) use of insulin; Z68.26 Body mass index [BMI] 26.0-26.9, adult; Z87.891 Personal history of nicotine dependence; Z95.5 Presence of coronary angioplasty implant and graft; Z79.84 Long term (current) use of oral hypoglycemic drugs; Z95.810 Presence of automatic (implantable) cardiac defibrillator; Z91.19 Patient's noncompliance with other medical treatment and regimen; Z88.8 Allergy status to other drugs, medicaments and biological substances
CPT/HCPCS: 36556; 36600; 82962; 83880; 84439; 87804; 97110-GP; 97530-GP; C9113; G0480; J0696; J1265; J1450; J1642; J1885; J1940; J2060; J2185; J2270; J2405; J2543; J3370; J3430; J3475; J3480; J3490; J7030; J7050; J7620; J8597; P9047; Q0092; Q9967